=== PATIENT | female | born 1975 | race Caucasian/White ===

== ENCOUNTER → 2017-11-25 15:48 | Outpatient (CLI) | payer MEDICAID, SELFPAY ==
[2017-11-25 18:40] LABS: Absolute Lymphocyte Count 2.11 X10^3/ul (0.83-4.51); Absolute Neutrophil Count 7.6 X10^3/uL (2.0-7.7); Basophil# 0.02 X10^3/uL; Basophil% 0.2 % (0-1); Eosinophil# 0.25 X10^3/uL; Eosinophils% 2.3 % (0-5); Hematocrit 44.2 % (37-47); Hemoglobin 14.3 g/dl (12.0-15.0); Lymphocyte # 2.11 X10^3/ul (4.0); Lymphocyte % 19.8 % (19-41); Mean Corp Hgb Conc 32.4 g/gl (32-36); Mean Corpuscular Hgb 29.6 pg (27.0-32.0); Mean Corpuscular Volume 91.5 fL (81-99); Mean Platelet Vol. 10.6 fl (6.2-12.0); Monocyte# 0.66 X10^3/uL; Monocyte% 6.2 % (0-10); Neutrophil % 71.2 % (47-70); POSITIVE COUNT NO; POSITIVE DIFFERENTIAL NO; POSITIVE MORPHOLOGY NO; Platelet Count 255 K/mm3 (150-450); RBC Distribution Width CV 14.7 % (11.6-14.6); RBC Distribution Width SD 48.3 fl (35.1-43.9); Red Blood Count 4.83 M/mm3 (4.2-5.4); White Blood Count 10.7 K/mm3 (4.4-11.0)
[2017-11-25 18:41] LABS: ALB/GLOB Ratio 0.8 RATIO (0.9-2.4); AST(SGOT) 21 U/L (15-37); Alanine Aminotransfer ALT/SGPT 58 U/L (13-56); Albumin, Serum 3.3 g/dL (3.2-5.0); Alkaline Phosphatase 152 U/L (45-117); Anion Gap 9 (5-15); BUN 9 mg/dL (7-18); BUN/Creat Ratio 15.8 RATIO (10-20); Calcium,Total 8.4 mg/dL (8.5-10.1); Chloride 104 mmol/L (98-107); Creatinine, Serum 0.57 mg/dL (0.55-1.02); EST Glomerular Filtration Rate 123 mL/min (>60); Est Glom Filt Rate - Afr Amer 148 mL/min (>60); Globulin 4.2 g/dL (2.2-4.2); Glucose 165 mg/dL (74-106); Potassium 3.9 mmol/L (3.5-5.1); Protein, Total 7.5 g/dL (6.4-8.2); Sodium Level 138 mmol/L (136-145)
[2017-11-25 18:47] LABS: Erythrocyte Sedimentation Rate 71 mm/hr (0-20); Vitamin D,25 Hydroxy 10.8 ng/mL (29.95-100.01)
== END ==
PROVIDERS: Family Provider Family Medicine; PCP Family Medicine; Visit Provider Family Medicine
DX: E11.9 Type 2 diabetes mellitus without complications (principal); M79.7 Fibromyalgia
CPT/HCPCS: 36415; 80053; 82306; 84443; 85025; 85652

== ENCOUNTER → 2018-01-03 14:45 | Outpatient (CLI) | payer MEDICAID, SELFPAY ==
[2018-01-03 15:59] LABS: Erythrocyte Sedimentation Rate 48 mm/hr (0-20)
[2018-01-03 16:07] LABS: Rheumatoid Factor < 10.0 IU/mL (<15); Uric Acid 3.3 mg/dL (2.6-6.0)
[2018-01-03 16:30] LABS: Microalbumin:Creatinine Ratio 10.3 mg/g CRE (<30 mg/g CRE)
[2018-01-04 08:44] LABS: Vitamin D,25 Hydroxy 26.3 ng/mL (29.95-100.01)
[2018-01-06 12:17] LABS: ANTINUCLEAR ANTIBODIES DIRECT Negative (Negative)
== END ==
PROVIDERS: Family Provider Family Medicine; PCP Family Medicine; Visit Provider Family Medicine
DX: E11.9 Type 2 diabetes mellitus without complications (principal); R70.0 Elevated erythrocyte sedimentation rate; E55.9 Vitamin D deficiency, unspecified
CPT/HCPCS: 36415; 82043; 82306; 82570; 84550; 85652; 86038; 86140; 86431

== ENCOUNTER → 2020-01-16 | Outpatient (CLI) | payer MEDICAID, SELFPAY ==
--- NOTE | 2020-01-16 10:00 | MRI_ITS ---
STUDY: MRI BRAIN WITH AND WITHOUT CONTRAST (ATTENTION INTERNAL AUDITORY CANALS - I.A.C.''s) REASON FOR EXAM: Female, 44 years old. vertigo -- dizziness x3 months, bilat ear pressure, hearing OK TECHNIQUE: Standardized multiplanar fat and water weighted pulse sequences were obtained. IV dotarem 22 ml was administered for the contrast portion of the examination. COMPARISON: None. FINDINGS: Normal bilateral temporal bones. Normal bilateral internal auditory canals. There is no demonstrated intracanalicular or cisternal vestibular schwannoma (acoustic neuroma). There is no enhancement of the bilateral VIIth or VIIIth cranial nerves. Normal bilateral cochlea, vestibules and semicircular canals. Normal size of the ventricles and extra-axial spaces for the patient''s age. Normal white matter tracts of the supratentorial brain. There is no evidence for recent intracranial ischemia or other cause of cytotoxic edema on diffusion weighted imaging (DWI). Normal bilateral basal ganglia. Normal thalami. Normal flow voids within the major intracranial circulation suggesting patency by spin echo criteria. Normal venous enhancement. There is no enhancing intra-axial or extra-axial abnormality. There is no extra-axial fluid accumulation. 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 Normal infundibular stalk, hypothalamus, and optic chiasm. Normal tectal plate and pineal gland. Normal midbrain, pooja and medulla. Normal cerebellum. Normal basal cisterns. No demonstrated orbital abnormality, within the constraints of a routine brain study. Normal visualized paranasal sinuses. Normal calvarium and skull base. Normal visualized soft tissue structures. Normal visualized upper cervical spine. MRI/Brain W/WO Contrast IMPRESSION: Normal unenhanced and enhanced MRI of the bilateral internal auditory canals (I.A.C''s). Electronically Signed: Felix Collins MD at 11:30 EDT Tel , Service support ,
== END | disposition home or self-care (01) ==
PROVIDERS: PCP Family Medicine; Referring Provider Otolaryngology; Visit Provider Otolaryngology
DX: R42 Dizziness and giddiness (principal)
CPT/HCPCS: 70553; A9575

== ENCOUNTER → 2020-02-05 | Outpatient (CLI) | payer MEDICAID, SELFPAY ==
[2016-04-14 06:43] VITALS: BMI 46.7
--- NOTE | 2020-02-05 12:41 | RAD_ITS ---
STUDY: X-RAY CHEST REASON FOR EXAM: Female, 44 years old. Smoker -- dizziness, light-headed lately TECHNIQUE: PA and lateral views of the chest. COMPARISON: None. FINDINGS: The lungs are clear and expanded. Scattered calcified granulomas. There is no demonstrated pleural abnormality. Normal size heart. Normal mediastinum and guille. Normal visualized pulmonary arteries. Normal visualized aortic arch and descending thoracic aorta. There are degenerative changes of the visualized thoracic spine. Normal visualized ribs, clavicles, and shoulders. There is no demonstrated abnormality of the visualized soft tissue structures of the upper abdomen. RAD/Chest PA and Lateral IMPRESSION: No acute abnormality is seen. Electronically Signed: Celso Acosta, at 15:28 EDT , Service support ,
[2020-02-05 15:10] LABS: Hematocrit 44.1 % (37-47); Hemoglobin 14.2 g/dL (12.0-15.0); Mean Corp Hgb Conc 32.2 g/dL (32-36); Mean Corpuscular Hgb 30.9 pg (27.0-32.0); Mean Corpuscular Volume 96.1 fL (81-99); Mean Platelet Vol. 9.5 fl (6.2-12.0); Platelet Count 296 K/mm3 (150-450); Red Blood Count 4.59 M/mm3 (4.2-5.4); White Blood Count 11.1 K/mm3 (4.4-11.0)
[2020-02-05 15:16] LABS: Erythrocyte Sedimentation Rate 19 mm/hr (0-20)
[2020-02-05 15:21] LABS: Vitamin D,25 Hydroxy 15.4 ng/mL
[2020-02-05 15:34] LABS: ALB/GLOB Ratio 0.8 RATIO (0.9-2.4); AST(SGOT) 11 U/L (15-37); Alanine Aminotransfer ALT/SGPT 24 U/L (13-56); Albumin, Serum 3.4 g/dL (3.2-5.0); Alkaline Phosphatase 82 U/L (45-117); Anion Gap 8 (5-15); BUN 7 mg/dL (7-18); BUN/Creat Ratio 10.3 RATIO (10-20); Calcium,Total 8.8 mg/dL (8.5-10.1); Chloride 102 mmol/L (98-107); Cholesterol 276 mg/dL (200); Creatinine, Serum 0.68 mg/dL (0.55-1.02); EST Glomerular Filtration Rate 100 mL/min (>60); Est Glom Filt Rate - Afr Amer 120 mL/min (>60); Globulin 4.3 g/dL (2.2-4.2); Glucose 145 mg/dL (74-106); High Density Lipoprotein 42 mg/dL; Magnesium 2.1 mg/dL (1.6-2.6); Potassium 3.8 mmol/L (3.5-5.1); Protein, Total 7.7 g/dL (6.4-8.2); Sodium Level 136 mmol/L (136-145); Thyroid Stim Hormone (TSH) 2.06 uIU/mL (0.358-3.74); Triglycerides 193 mg/dL; Very Low Density Lipoprotein 39 mg/dL (5-40)
== END | disposition home or self-care (01) ==
LOC: MTLAB 12:38
PROVIDERS: PCP Family Medicine; Referring Provider Family Medicine; Visit Provider Family Medicine
DX: E11.9 Type 2 diabetes mellitus without complications (principal); K58.9 Irritable bowel syndrome, unspecified; J44.9 Chronic obstructive pulmonary disease, unspecified
CPT/HCPCS: 36415; 71046; 80053; 80061; 82306; 83735; 84443; 85027; 85652

== ENCOUNTER 2020-05-19 10:00 | Inpatient (IN) | payer MEDICAID, SELFPAY ==
[2020-05-19] VITALS (37 sets, daily range): BP systolic 123–210; BP diastolic 58–137; PULSE 55–92; RESP 14–25; TEMP 36.6–36.7; O2SAT 97–100; BMI 39.4; BMI 39.1
--- NOTE | 2020-05-19 10:20 | EKG12_ITS ---
Test Reason : CP Blood Pressure : / mmHG Vent. Rate : 080 BPM Atrial Rate : 080 BPM P-R Int : 126 ms QRS Dur : 096 ms QT Int : 452 ms P-R-T Axes : 067 089 017 degrees QTc Int : 521 ms Sinus rhythm with Premature ventricular complexes or Fusion complexes ST & T wave abnormality, consider inferior ischemia Prolonged QT Abnormal ECG No previous ECGs available Confirmed by GOLDIE LYNCH, HUMBERTO ([id number]), slot editor RAMONITA GRAMAJO ([id number]) on 05/21/2020 11:37:58 AM Referred By: TERELL Confirmed By:HUMBERTO AMEZCUA MD
--- NOTE | 2020-05-19 10:21 | ED.DCSUM_ITS ---
History of Present Illness Chief Complaint: Chest Pain Informant: Patient Onset: - - overnight; between 6-10 hrs Activity at onset: Sleep Timing: Continuous Quality: Heaviness, Pressure Location: Substernal - with radiation into neck/ears Current Severity: Severe Maximum Severity: Severe Worsened By: - - sleeping; tried to go back to sleep and woke up w/ pain worse Relieved By: Nothing - tried tylenol and ibuprofen Associated Symptoms: Nausea, Vomiting, Diaphoresis, Dyspnea. Negative for: Cough, Fever, Lightheadedness, Palpitations Prior Similar Symptoms: No Recent Illness/Hospitalization: No CVD Risk Factors: Diabetes, Hypercholesterolemia, Smoking PE Risk Factors: Negative for: Recent Travel/Surgery, Recenet Immobilization, Prior DVT or PE, Cancer, OCP + Smoking + >/=35 - Past Medical History (1) Type 2 diabetes mellitus Status: Chronic (2) COPD (chronic obstructive pulmonary disease) Status: Chronic (3) Hyperlipidemia Status: Chronic Past Medical History - Allergies and Home Meds Allergies/Adverse Reactions: Allergies latex Allergy (Verified 04/08/16 13:02) Rash Primary Care Physician: Jonn Romero MD [Primary Care Provider] - Smoking Status: Current every day smoker Review of Systems General: Reports: Malaise, Sweats. Denies: Chills, Fever Eyes: Denies: Visual changes - bilaterally, Diplopia ENT: Denies: Bilateral ear pain, Rhinorrhea, Sore throat Cardiovascular: Reports: Chest pain. Denies: Palpitations Respiratory: Reports: Dyspnea. Denies: Cough, Dyspnea on exertion Gastrointestinal: Reports: Nausea, Vomiting. Denies: Abdominal pain, Diarrhea, Melena, Hematochezia Genitourinary: Denies: Dysuria, Hematuria, Frequency Musculoskeletal: Reports: Neck pain. Denies: Back pain, Swelling, Extremity Pain Skin: Denies: Rash, Wounds Neurological: Denies: Headache, Weakness, Numbness Physical Exam Vital Signs/Narrative: Vital Signs Temp Pulse Resp BP Pulse Ox 05/19/20 10:01 97.9 F 58 L 20 H 171/86 H 98 Inital Vital Signs reviewed: Yes General: Well nourished, Well developed, Obese, No Acute Distress - but crying in pain Head: Normocephalic, Atraumatic Eyes: Perrl, EOMI ENT: Moist mucous membranes, No rhinorrhea Neck: Supple, Nontender Cardiovascular: Regular rate, Regular rhythm, No murmurs, - - Equal bilateral 2+/4 radial pulses. Negative for: Tachycardia Respiratory: No distress, CTA bilaterally, Chest nontender Abdomen: Soft, Nontender, Nondistended, Normal bowel sounds Back: Nontender, Normal Inspection Extremities: Nontender, No edema. Negative for: Calf Tenderness Skin: Normal color, No rash, No Trauma Neurological: Alert, Oriented x3, Cranial nerves II-XII grossly intact, Normal Strength, Normal Sensation Psychological: Normal Mood, Tearful Diagnostic/Tx/Re-eval Impressions Chest X-Ray 05/19/20 10:55 IMPRESSION: No acute abnormality is seen. Electronically Signed: Celso Acosta, at 11:07 EDT , Service support , 05/19/20 10:55 Chest 1 View (Portable) [RAD] Stat Laboratory Results 05/19/20 05/19/20 05/19/20 10:10 10:10 10:10 WBC 12.4 H RBC 5.19 Hgb 16.5 H Hct 48.7 H MCV 93.8 MCH 31.8 MCHC 33.9 RDW Std Deviation 45.5 H RDW Coeff of Kenn 13.2 Plt Count 350 MPV 9.6 Immature Gran % (Auto) 0.300 Neut % (Auto) 65.6 Lymph % (Auto) 26.5 [place] % (Auto) 5.8 Eos % (Auto) 1.3 Baso % (Auto) 0.5 Absolute Neuts (auto) 8.2 H Absolute Lymphs (auto) 3.30 Nucleated RBC % 0 APTT 27.3 Sodium 135 L Potassium 2.9 L Chloride 95 L Carbon Dioxide 33.0 H Anion Gap 7 BUN 16 Creatinine 0.92 Estim Creat Clear Calc 55.47 Est GFR (MDRD) Af Amer 85 Est GFR (MDRD) Non-Af 70 BUN/Creatinine Ratio 17.4 Glucose 169 H Calcium 9.7 Troponin I < 0.015 - Rhythm Strip Rhythm Strip: Sinus Rhythm Rate: 60 Ectopy: None - EKG Initial EKG Interpretation: Sinus Rhythm, S-T Depression - inf 1-2mm, no recip ST elevation Prior: No Prior Treatment: Aspirin, NTG SL Repeat Eval: No changes; subsequently given morphine and GI cocktail, with mild improvement, appears more comfortable PETER Risk: >/= 3RF, Severe Angina </=24 hours, ST Deviation >/= 0.5mm Score: 3 - Medical Decision Making Patient has above average risk for a 44-year-old, and continues to smoke despite having COPD. Her EKG is abnormal showing possible subendocardial ischemia inferiorly, however there is no old EKG available for evaluation to see if this is pre-existing. For these reasons, I think she should be admitted to have further evaluation although her enzymes are negative which certainly is reass uring. Patient is comfortable with this plan. ED Disposition - Plan for ED Patient: Disposition: Acute Care Hospital [facility] Diagnosis: Chest pain, unspecified, Hypokalemia Referrals: Jonn Romero MD [Primary Care Provider] -
[2020-05-19] MEDS: Aspirin 81 MG TAB.CHEW 324 MG PO (10:30)
[2020-05-19] MEDS: Ondansetron 4 MG/2 ML Vial IV ×2 (10:30→19:45)
[2020-05-19] MEDS: Nitroglycerin SL (ED/IMG/CATH) 0.4 MG TABLET SUBLINGUAL ×3 (10:34→10:45)
[2020-05-19] MEDS: 0.9% Normal Saline 1,000 ML 150 ML IV (10:35)
[2020-05-19 10:39] LABS: Absolute Neutrophil Count 8.2 X10^3/uL (2.0-7.7); Basophil# 0.06 X10^3/uL; Basophil% 0.5 % (0-1); Eosinophil# 0.16 X10^3/uL; Eosinophils% 1.3 % (0-5); Hematocrit 48.7 % (37-47); Hemoglobin 16.5 g/dL (12.0-15.0); Lymphocyte % 26.5 % (19-41); Mean Corp Hgb Conc 33.9 g/dL (32-36); Mean Corpuscular Hgb 31.8 pg (27.0-32.0); Mean Corpuscular Volume 93.8 fL (81-99); Mean Platelet Vol. 9.6 fl (6.2-12.0); Monocyte# 0.72 X10^3/uL; Monocyte% 5.8 % (0-10); NRBC Flagged by Analyzer 0 % (0-5); Neutrophil # 8.16 X10^3/uL (2.7-7.7); Neutrophil % 65.6 % (47-70); Platelet Count 350 K/mm3 (150-450); RBC Distribution Width CV 13.2 % (11.6-14.6); RBC Distribution Width SD 45.5 fl (35.1-43.9); Red Blood Count 5.19 M/mm3 (4.2-5.4); White Blood Count 12.4 K/mm3 (4.4-11.0)
[2020-05-19 10:42] LABS: Partial Thromboplast Time 27.3 Seconds (24.1-36.2)
[2020-05-19 10:47] LABS: Anion Gap 7 (5-15); BUN 16 mg/dL (7-18); BUN/Creat Ratio 17.4 RATIO (10-20); Calcium,Total 9.7 mg/dL (8.5-10.1); Chloride 95 mmol/L (98-107); Creatinine, Serum 0.92 mg/dL (0.55-1.02); EST Glomerular Filtration Rate 70 mL/min (>60); Est Glom Filt Rate - Afr Amer 85 mL/min (>60); Estimated Creatinine Clearance 55.47 ml/min; Glucose 169 mg/dL (74-106); Potassium 2.9 mmol/L (3.5-5.1); Sodium Level 135 mmol/L (136-145)
--- NOTE | 2020-05-19 10:55 | RAD_ITS ---
STUDY: X-RAY CHEST REASON FOR EXAM: Female, 44 years old. Chest pain TECHNIQUE: Single AP portable view of the chest. COMPARISON: Comparison is made with prior study dated 02/05/2020. FINDINGS: EKG electrodes are seen. The lungs are clear and expanded. There is no demonstrated pleural abnormality. Normal size heart. Normal mediastinum and guille. Normal visualized pulmonary arteries. Normal visualized aortic arch and descending thoracic aorta. There are diffuse degenerative changes of the visualized thoracic spine. Tiny calcification is seen overlying the greater tuberosity of the right humerus suggestive of possible calcific tendinitis. There is no demonstrated abnormality of the visualized soft tissue structures of the upper abdomen. RAD/Chest 1 View (Portable) IMPRESSION: No acute abnormality is seen. Electronically Signed: Celso Acosta, at 11:07 EDT , Service support ,
[2020-05-19] MEDS: Morphine 4 MG/ML Syringe IV (11:14)
[2020-05-19] MEDS: Mag Hydrox/Al Hydrox/Simeth 30 ML UDC PO (11:14)
--- NOTE | 2020-05-19 11:28 | HP.PCM_ITS ---
Problem List (1) Type 2 diabetes mellitus Status: Chronic Qualifiers: Diabetes mellitus intermediate card tender insulin use: without intermediate card tender use Diabetes mellitus complication status: with other specified complication Qualified Code(s): E11.69 - Type 2 diabetes mellitus with other specified complication (2) COPD (chronic obstructive pulmonary disease) Status: Chronic Qualifiers: COPD type: unspecified COPD Qualified Code(s): J44.9 - Chronic obstructive pulmonary disease, unspecified (3) Chest pain, unspecified Status: Acute Qualifiers: Chest pain type: unspecified Qualified Code(s): R07.9 - Chest pain, unspecified (4) Hypokalemia Status: Acute History of Present Illness Date of Admission: 05/19/20 Chief Complaint: Chest pain -occurred on the day of admission. The patient is a 44 year old F with past medical history of hypertension, type II DM, fibromyalgia who comes in with complaints of chest pain. Patient woke up on the day of admission around 3 AM with complaints of substernal chest pain that feels pressure-like, radiates to both jaws and her back and down her left arm. It was accompanied by nausea and diaphoresis. This persisted despite she taking Tylenol and ibuprofen. Chest pain is worse when she lies back. She has some minimal relieved when she sits up. She denied any fever or chills or any recent illness. Chest pain is no worse when she moves her torso. She denied any diarrhea. She is constipated. She she however over the last few days has been vomiting, nothing comes out, but she has severe nausea and vomiting several times a day. Vitals on admission showed temperature of 97.9F, heart rate 58, blood pressure 171/86, respiratory was 20, SPO2 98% on room air. Her WBC count was 12.4, hemoglobin 16.5, platelet count 350, sodium 135, potassium 2.9, chloride 95, bicarbonate 33, BUN 16, creatinine 0.92, glucose 169, magnesium was 2.6, troponins was negative, LFTs unremarkable. Chest x-ray was unremarkable. Past Medical History Past Medical History (Chronic Problems): Chronic Problems Type 2 diabetes mellitus (Chronic) COPD (chronic obstructive pulmonary disease) (Chronic) Hyperlipidemia (Chronic) Allergies latex Allergy (Verified 04/08/16 13:02) Rash Home Medications: Ambulatory Orders Medication Instructions Recorded Atorvastatin Calcium [Lipitor] 40 mg PO QHS 02/13/16 Albuterol Sulfate [Albuterol 2.5 mcg INHALATION 4X/DAY PRN PRN 05/19/20 Sulfate HFA] Escitalopram Oxalate 10 mg PO DAILY 05/19/20 Gabapentin [Neurontin] 400 mg PO TID 05/19/20 Hydrochlorothiazide 12.5 mg PO DAILY 05/19/20 Linagliptin [Tradjenta] 5 mg PO DAILY 05/19/20 Tiotropium [place] [Spiriva] 2.5 mcg IH DAILY 05/19/20 Surgical History: - - Status post carpal tunnel surgery, skin lesion removal Psychiatric History: Depression [employer] History: No pertinent [employer]IVER history Lives: With Family - lives with sister Smoking Status: Heavy Smoker (>10/day) Tobacco Use: Cigars Alcohol: None Drugs: None - *Family History Maternal History Items: COPD, Heart Disease - [place] in 50s, Hypertension Paternal History Items: Heart Disease, Hypertension, Stroke Review of Systems Constitutional: Reports: Anorexia, Fatigue. Denies: Chills, Fever, Night Sweats, Malaise, Weakness, Weight Change Eyes: Denies: Blurred vision, Cataracts, Conjunctivae Inflammation, Pain, Redness, Vision Change HEENT: Denies: Difficulty Hearing, Difficulty Swallowing, Head Aches, Hearing Changes, Sinus Congestion, Sinus Drainage Cardiovascular: Denies: Chest Pain, Claudication, Orthopnea, Palpitations, Paroxysmal Noc. Dyspnea Respiratory: Denies: Cough, Shortness of breath at rest, Shortness of breath upon exertion, Sputum production Gastrointestinal: Reports: Nausea, Vomiting - nothing much comes out. Denies: Abdominal Pain, Hematemesis, Hematochezia Genitourinary: Denies: Dysuria, Incontinence Gynecological: Denies: Breast symptoms, Excessively long or heavy periods, Vaginal discharge, Vaginal itching Musculoskeletal: Denies: Joint Pain, Joint stiffness, Joint swelling, Joint Tenderness Skin: Denies: Pruritis, Rash, Wounds Neurological: Denies: Difficulty swallowing, Focal weakness, Numbness, Tingling Psychiatric: Denies: Anxiety, Depression, Homicidal Ideations, Suicidal Ideations Hematologic/ Lymphatic: Denies: Easy Bruising, Easy Bleeding VTE Information - Inpt Only VTE Present on Admission: No VTE Pharm Prophylaxis ordered?: Yes Patient Problems: Active and Suspected Problems Chest pain, unspecified (Acute) Hypokalemia (Acute) - Physical Exam Vitals/I&O's: Vital Signs Temp Pulse Resp BP Pulse Ox 97.9 F 70 19 H 159/108 H 100 05/19/20 10:24 05/19/20 10:45 05/19/20 10:24 05/19/20 10:45 05/19/20 10:24 Oxygen Flow Rate (L/min) 2 Oxygen Delivery Method Nasal Cannula Weight: 91.5 kg Body Mass Index (BMI) 39.4 Finger Stick Blood Glucose 132 General: Alert, Oriented x3, Cooperative, - - appears uncomfortable, having chest pain HEENT: Atraumatic, PERRLA, EOMI, Normocephalic Oral: Moist Mucosa Neck: Supple Lungs: Clear to auscultation, Normal air movement Cardiovascular: Regular rate, Regular Rhythm, Normal S1, Normal S2, No murmurs Abdomen: Bowel Sounds Present, Soft, Non Tender, Non-Distended, No Hepato- splenomegaly Extremities: No edema Skin: No rashes Musculoskeletal: No Tenderness to Palpation of Joints or Extremities Lymphatic: No Cervical, Supraclavicular, or Inguinal Adenopathy Neurological: Cranial nerves II-XII grossly intact, Neuro grossly intact Psych/Mental Status: Normal Affect, Appropriate Laboratory Results 05/19/20 10:10: WBC 12.4 H, RBC 5.19, Hgb 16.5 H, Hct 48.7 H, MCV 93.8, MCH 31.8, MCHC 33.9, RDW Std Deviation 45.5 H, RDW Coeff of Kenn 13.2, Plt Count 350, MPV 9.6, Immature Gran % (Auto) 0.300, Neut % (Auto) 65.6, Lymph % (Auto) 26.5, [place] % (Auto) 5.8, Eos % (Auto) 1.3, Baso % (Auto) 0.5, Absolute Neuts (auto) 8.2 H, Absolute Lymphs (auto) 3.30, Nucleated RBC % 0 05/19/20 10:10: Sodium 135 L, Potassium 2.9 L, Chloride 95 L, Carbon Dioxide 33.0 H, Anion Gap 7, BUN 16, Creatinine 0.92, Estim Creat Clear Calc 55.47, Est GFR (MDRD) Af Amer 85, Est GFR (MDRD) Non-Af 70, BUN/Creatinine Ratio 17.4, Glucose 169 H, Calcium 9.7, Troponin I < 0.015 05/19/20 10:10: APTT 27.3 Current Medications Sodium Chloride () 1,000 mls @ 150 mls/hr IV .[id number] [facility] Last Admin: 05/19/20 10:35 Dose: 150 mls/hr Documented by: Potassium Chloride () 10 meq in 100 mls @ 100 mls/hr IV BOLUS Q1H [facility] Stop: 05/19/20 11:59 Assessment/Plan All Active Problems Chest pain, unspecified (Acute) Hypokalemia (Acute) 1. Chest pain, unclear etiology, concerning for possible ACS versus acute pericarditis Patient with multiple risk factors Initial EKG showed ST segment depression in II, III,AVF. No previous EKG to compare Admit to PCU, monitor on telemetry, trend troponins Continue on aspirin, 2D echo stat, nitro as needed, morphine as needed Will consider cardiology consult if troponins are elevated Pantoprazole IV twice daily 2. Accelerated hypertension/hypertensive emergency, Continue on hydrochlorothiazide, labetalol as needed will continue to monitor 3. Type II DM, on Tradjenta Continue with blood glucose checks and insulin sliding scale 4. Obesity, BMI 39.1, lifestyle modification advised 5. Depression, continue on Lexapro 6. Nicotine dependence, advised to quit, will put on replacement 7. DVT prophylaxis with heparin subcu Inpatient E&M: [id number] Init Hosp L3
[2020-05-19] MEDS: Potassium Chloride 10mEq/100mL 10 MEQ/100 ML IV.SOLN. 100 MEQ IV BOLUS ×5 (11:39→21:17)
[2020-05-19] MEDS: Morphine 2 MG/ML Syringe IV ×3 (12:19→19:38)
[2020-05-19 12:22] LABS: Magnesium 2.6 mg/dL (1.6-2.6)
--- NOTE | 2020-05-19 12:27 | EKG12_ITS ---
Test Reason : CP Blood Pressure : / mmHG Vent. Rate : 081 BPM Atrial Rate : 081 BPM P-R Int : 142 ms QRS Dur : 086 ms QT Int : 436 ms P-R-T Axes : 066 087 017 degrees QTc Int : 506 ms Normal sinus rhythm Septal infarct , age undetermined T wave abnormality, consider inferior ischemia Prolonged QT Abnormal ECG Confirmed by MAX LYNCH, VIKY ([id number]), graphic editor RAMONITA GRAMAJO ([id number]) on 05/21/2020 11:02:46 AM Referred By: JENA Confirmed By:VIKY SANTANA MD
[2020-05-19 12:31] LABS: AST(SGOT) 13 U/L (15-37); Alanine Aminotransfer ALT/SGPT 25 U/L (13-56); Albumin, Serum 4.2 g/dL (3.2-5.0); Alkaline Phosphatase 92 U/L (45-117); Bilirubin, Direct 0.13 mg/dL (0.00-0.30); Globulin 4.4 g/dL (2.2-4.2); Protein, Total 8.6 g/dL (6.4-8.2)
--- NOTE | 2020-05-19 12:32 | ECHOCS_ITS ---
Reason For Study: CHEST PAIN Procedure This was a 2D Doppler, Color Flow transthoracic echocardiogram. The study was technically difficult. Contrast injection was performed. Exam performed portable in patient room. Left Ventricle Normal LV size. The estimated ejection fraction is 35 %. Moderately severe segmental systolic dysfunction (see wall motion). Stage 1 diastolic dysfunction. [place] : Severely Hypokinetic. Mid- anteroseptal : Hypokinetic. Mid-Anterior : Severely Hypokinetic. The rest of the wall segments are normal. Right Ventricle Normal RV size. Normal systolic function. [place] Normal left atrium. Normal right atrium. Mitral Valve Normal mitral valve. Trivial eccentric mitral valve insufficiency. Tricuspid Valve Normal tricuspid valve. Aortic Valve Normal aortic valve. Pulmonic Valve Normal pulmonic valve. Great Vessels Normal aortic root. The pulmonary artery is normal size. Normal inferior vena cava. Pericardium/Pleural No pericardial effusion. Medication Diluted definity 4.0ml given slow IV push to enhance endocardial definition. MMode/2D Measurements & Calculations RVDd: 3.3 cm Ao root diam: 3.7 cm LAV(MOD-bp): 40.7 ml LAV(MOD-bp) Indexed: 21.8 ml/m2 LAV(MOD-sp2): 42.0 ml LAV(MOD-sp4): 39.4 ml LA dimension(2D): 3.6 cm LA A4 area: 14.9 cm2 RA A4 area: 8.9 cm2 Time Measurements MV dec time: 0.33 sec Doppler Measurements & Calculations MV E max chuy: 67.3 cm/sec Lat Peak E' Chuy: 4.3 cm/sec Med Peak E' Chuy: 4.6 cm/sec MV A max chuy: 111.8 cm/sec E/E' lat: 15.8 E/E' med: 14.5 MV E/A: 0.60 Ao V2 max: 112.3 cm/sec LV V1 max: 79.5 cm/sec PA V2 max: 86.5 cm/sec Ao max P.0 mmHg LV V1 max P.5 mmHg Interpretation Summary Normal LV size. The estimated ejection fraction is 35 %. Moderately severe segmental systolic dysfunction (see wall motion). [place] : Severely Hypokinetic. Mid-anteroseptal : Hypokinetic Mid-Anterior : Severely Hypokinetic. Stage 1 diastolic dysfunction. Contrast injection was performed. Ordering Physician: Yuni Davis Referring Physician: ADAM MACIEL Performed By: Brenda Ann, KAREN, RVT
[2020-05-19] MEDS: Nitroglycerin (INPATIENT USE) 0.4 MG TAB.SUBL SUBLINGUAL ×4 (12:43→16:24)
[2020-05-19 16:14] LABS: Anion Gap 8 (5-15); BUN 16 mg/dL (7-18); BUN/Creat Ratio 19.2 RATIO (10-20); Calcium,Total 9.1 mg/dL (8.5-10.1); Chloride 99 mmol/L (98-107); Creatinine, Serum 0.83 mg/dL (0.55-1.02); EST Glomerular Filtration Rate 78 mL/min (>60); Est Glom Filt Rate - Afr Amer 95 mL/min (>60); Estimated Creatinine Clearance 61.48 ml/min; Glucose 185 mg/dL (74-106); Potassium 2.8 mmol/L (3.5-5.1); Sodium Level 136 mmol/L (136-145)
--- NOTE | 2020-05-19 16:17 | EKG12_ITS ---
Test Reason : CP Blood Pressure : / mmHG Vent. Rate : 092 BPM Atrial Rate : 092 BPM P-R Int : 136 ms QRS Dur : 080 ms QT Int : 422 ms P-R-T Axes : 068 103 188 degrees QTc Int : 521 ms Normal sinus rhythm Septal infarct , age undetermined T wave abnormality, consider inferior ischemia T wave abnormality, consider anterolateral ischemia Prolonged QT Abnormal ECG Confirmed by MAX LYNCH, VIKY ([id number]), news editor RAMONITA GRAMAJO ([id number]) on 05/22/2020 1:14:31 PM Referred By: TERELL Confirmed By:VIKY SANTANA MD
--- NOTE | 2020-05-19 16:24 | EKG12_ITS ---
Test Reason : CP Blood Pressure : / mmHG Vent. Rate : 088 BPM Atrial Rate : 088 BPM P-R Int : 132 ms QRS Dur : 088 ms QT Int : 392 ms P-R-T Axes : 056 104 058 degrees QTc Int : 474 ms Normal sinus rhythm Septal infarct , age undetermined Abnormal ECG Confirmed by MAX LYNCH, VIKY ([id number]), map editor RAMONITA GRAMAJO ([id number]) on 05/22/2020 1:16:19 PM Referred By: GOLDIE Confirmed By:VIKY SANTANA MD
[2020-05-19] MEDS: Nitroglycerin Oint 1 INCH PACKET TRANSDERM. (16:30)
--- NOTE | 2020-05-19 16:30 | NURSING ---
Dr. Wood at bedside to see patient. 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
[2020-05-19] MEDS: 0.9% Saline Lock 10 ML Syringe IV (16:51)
--- NOTE | 2020-05-19 16:54 | CON.PCM_ITS ---
Reason for Consult Date of Consultation: 05/19/20 Reason for Consultation: Chest discomfort History of Present Illness: The patient is a 44 year old F with a previous history of hypertension, type 2 diabetes mellitus, fibromyalgia who presented to the emergency room with chest discomfort saying that it woke her up from bed around 3 AM. She describes this as a pressure-like sensation radiating to both jaws and her back and down her left arm. It was accompanied by nausea and diaphoresis. She did take some Tylenol and ibuprofen but the chest pain persisted. She was seen in the emergency room an EKG was done which did not demonstrate any obvious acute changes. She has had significant stress over the last few days related to her significant other. She was admitted to the telemetry care unit and continued to have chest discomfort. She did demonstrate elevated blood pressure as well as hypokalemia. I was called to see the patient after the chest discomfort persisted and an echocardiogram was performed which demonstrated evidence of anterior hypokinesis and her troponin came back as abnormal. At this particular time she continues to have chest discomfort which is unrelenting. Past Medical History Allergies/Adverse Reactions: Allergies latex Allergy (Verified 04/08/16 13:02) Rash Home Medications: Ambulatory Orders Medication Instructions Recorded Atorvastatin Calcium [Lipitor] 40 mg PO QHS 02/13/16 Albuterol Sulfate [Albuterol 2.5 mcg INHALATION 4X/DAY PRN PRN 05/19/20 Sulfate HFA] Escitalopram Oxalate 10 mg PO DAILY 05/19/20 Gabapentin [Neurontin] 400 mg PO TID 05/19/20 Hydrochlorothiazide 12.5 mg PO DAILY 05/19/20 Linagliptin [Tradjenta] 5 mg PO DAILY 05/19/20 Tiotropium [place] [Spiriva] 2.5 mcg IH DAILY 05/19/20 Past Medical History (Chronic Problems): Chronic Problems Type 2 diabetes mellitus (Chronic) COPD (chronic obstructive pulmonary disease) (Chronic) Hyperlipidemia (Chronic) Surgical History: - - Status post carpal tunnel surgery, skin lesion removal Psychiatric History: Depression 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 Denies: Shortness of Breath, Orthopnea, PND, Peripheral Edema, Palpitations, Lightheadedness, Dizziness, Near Syncope, Syncope Respiratory: Denies: Cough, Sputum Production, Hemoptysis Gastrointestinal: Denies: Hematemesis, Hematochezia, Melena Genitourinary: Denies: Dysuria, Hematuria Muscoloskeletal: Denies: Myalgias Skin: Denies: Rash Neurological: Denies: Dizziness Psychiatric: Denies: Anxiety Hematologic/ Lymphatic: Denies: Lymph Node Enlargement Subjectve: Pleasant lady in no distress at this particular time Objective: Vital Signs Temp Pulse Resp BP Pulse Ox 97.9 F 84 18 167/109 H 97 05/19/20 11:51 05/19/20 16:35 05/19/20 11:51 05/19/20 16:35 05/19/20 12:26 Oxygen Flow Rate (L/min) 2 Oxygen Delivery Method Room Air Weight: 200 lb 6.403 oz Body Mass Index (BMI) 39.1 Finger Stick Blood Glucose 132 Intake and Output for Last 24 Hours 05/17/20 05/18/20 05/19/20 23:59 23:59 23:59 Intake Total 455 / 455 Balance 455 / 455 General: Awake, Alert, Oriented x 3 HEENT: PERRL, EOMI, Sclera Non Icteric Neck: Supple, Good ROM, No Lymph Node Enlargement Lungs: Clear to auscultation Cardiovascular: Regular Rhythm, Normal S1, Normal S2, No Murmurs, No Rubs, No Gallops Vascular: No Carotid Bruits, Normal Femoral Pulses, Normal Radial Pulses, Normal Dorsalis Pedal Pulse, Normal Posterior Tibial Pulses Abdomen: Bowel Sounds Present, Soft, Non Tender, No HSM, No Organomegaly Extremities: No Cyanosis, No Clubbing, No edema Musculoskeletal: No Erythema Skin: No Rashes Lymphatic: No Lymph Node Enlargement Neurological: No Focal Motor or Sensory Deficit Psych/Mental Status: Appropriate 05/19/20 10:10: WBC 12.4 H, RBC 5.19, Hgb 16.5 H, Hct 48.7 H, MCV 93.8, MCH 31.8, MCHC 33.9, Plt Count 350, MPV 9.6, Immature Gran % (Auto) 0.300, Neut % (Auto) 65.6, Lymph % (Auto) 26.5, [place] % (Auto) 5.8, Eos % (Auto) 1.3, Baso % (Auto) 0.5, Absolute Neuts (auto) 8.2 H, Nucleated RBC % 0 05/19/20 10:10: Sodium 135 L, Potassium 2.9 L, Chloride 95 L, Carbon Dioxide 33.0 H, Anion Gap 7, BUN 16, Creatinine 0.92, Est GFR (MDRD) Af Amer 85, Est GFR (MDRD) Non-Af 70, BUN/Creatinine Ratio 17.4, Glucose 169 H, Calcium 9.7, Tro ponin I < 0.015 05/19/20 10:10: APTT 27.3 05/19/20 10:10: Total Bilirubin 0.40, Direct Bilirubin 0.13 05/19/20 10:10: Magnesium 2.6 05/19/20 14:37: Sodium 136, Potassium 2.8 L, Chloride 99, Carbon Dioxide 29.0, Anion Gap 8, BUN 16, Creatinine 0.83, Est GFR (MDRD) Af Amer 95, Est GFR (MDRD) Non-Af 78, BUN/Creatinine Ratio 19.2, Glucose 185 H, Calcium 9.1, Troponin I 2.040 H* Rhythm: EKG: Normal sinus rhythm with downsloping ST depression noted in lead III and aVF and mildly elevated ST elevation in aVL. ECHO: Reduced left ventricular systolic function with severely hypokinetic mid anterior wall apex and inferoapical wall estimated ejection fraction 35 to 40% Assessment/Plan 1. Acute coronary syndrome * Patient presents with chest discomfort and subtle EKG changes with echocardiographic abnormalities noted and elevated troponin. It would be prudent for us to exclude an acute coronary syndrome. Certainly Takotsubo cardiomyopathy could also present this way. Due to her unrelenting chest discomfort I would recommend that we take her to the cardiac catheterization lab and assess her coronary anatomy. The risk benefits alternatives of been explained to her she understands and agrees to proceed. * 2. Severe uncontrolled hypertension * Her blood pressure appears to be uncontrolled at this particular time. I would recommend that we start her on intravenous nitroglycerin due to his chest discomfort and will titrate her medications afterwards. Depending on the findings on FLAQUITA inhibitor and a beta-ramy will be started. * 3. Risk factor modification * Would recommend aggressive risk factor modification. * Electrolyte abnormalities should also be corrected. * * Thank you for allowing me to participate in the care of your patient. Please don't hesitate to call if any issues arise.
[2020-05-19 16:57] LABS: Prothrombin Time (Protime)PT. 12.5 SECONDS (11.7-14.9)
[2020-05-19] MEDS: Nitroglycerin Infusion 250 ML 3 MG CONT INF (17:05)
--- NOTE | 2020-05-19 18:22 | CL.D_ITS ---
Patient Name: DAGO RIOS Study Date: 05/19/2020 Performing: Odin Wood MD Ht: 59.84 inches 152 cm : 1975 Wt: 200.62 lbs 91 kg Age: 44 Gender: female BSA: 1.87 PROCEDURE(S) PERFORMED [id number]-[id number]/COR/LV CLINICAL PROFILE AND INDICATIONS Indications: ACS <= 24 hrs Heart Failure: None Stress/Imaging Stress/Image Study Performed: No CONCLUSIONS Diffuse coronary artery disease with mild calcification noted of the left anterior descending artery, nondominant small circumflex artery with mid segment diffuse disease of 70% also involving the first obtuse marginal branch and calcification and mild diffuse disease noted of the right coronary artery . Definite wall motion abnormality involving the anterior wall and apex consistent with Takotsubo ca rdiomyopathy. RECOMMENDATIONS Medical therapy DESCRIPTION OF PROCEDURE The patient arrived to the procedure lab. The risks and benefits of the procedure as well as a full d escription of our services here and current unavailability of surgical backup were fully explained to the patient and/or their significant other prior to the catheterization. The Timeout was completed, verifying the correct patient and procedure. The patient's procedural site was prepped and draped in the usual fashion. Local anesthetic was given subcutaneously to right radial region with Lidocaine 2% . Using a modified Seldinger technique, arterial access was obtained via the right radial artery, a 6 Fr sheath was inserted. Left Coronary Artery selective angiography was performed in multiple views u sing a 5 Fr. 4.0 Sikes catheter. Right Coronary Artery selective angiography was then performed in mu ltiple views using a 5 Fr. 4.0 Sikes catheter. Left Ventriculography was performed in WALLER projection using a 5 Fr. Pigtail catheter. LV to AO pullback pressures were then recorded. CORONARY ANGIOGRAPHY DOMINANCE: Right Dominant LEFT HEART ASSESSMENT Left Ventricular Ejection Fraction: by LV Gram 35 % Consistent with Takotsubo cardiomyopathy. LEFT MAIN: Angiographically normal LEFT ANTERIOR DESCENDING ARTERY: Moderate luminal irregularities up to 50% CIRCUMFLEX ARTERY: MID CIRC: Diffusely diseased up to 70 % OM 1: Proximal - Diffusely diseased up to 70 % RIGHT CORONARY ARTERY: Mild luminal irregularities less than 30% PROX RCA: Mild calcification COMPLICATIONS No Complications PROCEDURE MEDICATIONS Fentanyl 50 mcg IV Versed 1 mg IV Heparin diluted in 23cc Heparinized saline. Patient given 10cc IA of this solution. 05/19/2020 17:53: 18 Nitro glycerin 25mg / 250ml D5W @ 5 mcg/min Arrived to the equipment operator/laborer on the drip and was continued 05/06 17:40:48 Nitro glycerin 25mg / 250ml D5W @ 10 mcg/min (increased rate) 05/19/2020 17:52:39 Nitro glycerin 25mg / 250ml D5W @ 15 mcg/min (increased rate) 05/19/2020 18:05:34 Potassium Chloride 10 mEq in 100cc NS 05/19/2020 17:41:37 Zofran 4 mg IV 05/19/2020 17:41:02 IV Bolus: .9 NaCl 400 ml total 05/19/2020 18:03:32 SUMMARY OF HEMODYNAMIC DATA Time AIR REST ECG 17:39:19 AO 181/122 (150) SA 17:52:10 LV 169/17, 27 18:01:28 LV 167/22, 28 18:01:34 LV 172/28, 34 18:02:22 LV 172/27, 33 18:02:28 LVp 181/21, 34 18:02:35 AOp 175/110 (141) 18:02:40 Signed By Odin Wood MD On 05/19/2020 18:21:49 Signed By Odin Wood MD On 05/19/2020 18:21:21 Odin Wood MD
[2020-05-19] MEDS: 0.9% Normal Saline 1,000 ML 100 ML IV (18:56)
[2020-05-19] MEDS: Ipratropium 0.5 MG/2.5 ML SOLUTION INHALATION (19:25)
[2020-05-19 19:31] LABS: Bedside Glucose 171 mg/dL (70-110)
[2020-05-19] MEDS: Labetalol (Compound) 20 MG/4 ML SYRINGE IV (20:02)
[2020-05-19] MEDS: LORazepam 2 MG/ML Syringe 1 MG IV (20:33)
[2020-05-19] MEDS: Polyethylene Glycol 3350 17 GM PACKET PO (20:33)
[2020-05-19] MEDS: fentaNYL 100 MCG/2 ML Ampul 25 MCG IV (20:33)
[2020-05-19] MEDS: Metoprolol Tartrate 50 MG Tablet PO (21:21)
[2020-05-19] MEDS: Atorvastatin Calcium 40 MG Tablet PO (21:22)
[2020-05-19] MEDS: Gabapentin 400 MG Capsule PO (21:22)
[2020-05-19] MEDS: Insulin Lispro 100 UNIT/ML INSULN.PEN SC (21:28)
[2020-05-19 21:36] LABS: Bedside Glucose 194 mg/dL (70-110)
[2020-05-20] VITALS (39 sets, daily range): BP systolic 99–147; BP diastolic 54–93; PULSE 72–102; RESP 14–30; TEMP 36.2–37.2; O2SAT 91–100
[2020-05-20] MEDS: LORazepam 2 MG/ML Syringe 1 MG IV (03:48)
[2020-05-20] MEDS: Acetaminophen 325 MG Tablet 650 MG PO ×2 (03:48→18:40)
[2020-05-20] MEDS: 0.9% Normal Saline 1,000 ML 100 ML IV (03:51)
[2020-05-20] MEDS: 0.9% Saline Lock 10 ML Syringe IV ×3 (03:53→21:18)
[2020-05-20 06:38] LABS: Absolute Lymphocyte Count 2.36 X10^3/uL (0.83-4.51); Basophil# 0.03 X10^3/uL; Basophil% 0.2 % (0-1); Eosinophil# 0.11 X10^3/uL; Eosinophils% 0.8 % (0-5); Lymphocyte # 2.36 X10^3/ul (4.0); Lymphocyte % 16.2 % (19-41); Mean Corp Hgb Conc 33.3 g/dL (32-36); Mean Corpuscular Hgb 31.3 pg (27.0-32.0); Mean Platelet Vol. 9.3 fl (6.2-12.0); Monocyte# 0.95 X10^3/uL; Monocyte% 6.5 % (0-10); NRBC Flagged by Analyzer 0 % (0-5); Neutrophil # 11.04 X10^3/uL (2.7-7.7); Neutrophil % 75.9 % (47-70); Platelet Count 252 K/mm3 (150-450); RBC Distribution Width CV 13.2 % (11.6-14.6); RBC Distribution Width SD 45.5 fl (35.1-43.9); Red Blood Count 4.15 M/mm3 (4.2-5.4); White Blood Count 14.6 K/mm3 (4.4-11.0)
[2020-05-20] MEDS: Insulin Lispro 100 UNIT/ML INSULN.PEN SC ×4 (06:42→21:17)
[2020-05-20] MEDS: Gabapentin 400 MG Capsule PO ×3 (06:42→21:17)
[2020-05-20] MEDS: Enoxaparin 40 MG/0.4 ML Syringe SC (06:42)
[2020-05-20 06:50] LABS: Bedside Glucose 171 mg/dL (70-110)
[2020-05-20 07:05] LABS: ALB/GLOB Ratio 0.9 RATIO (0.9-2.4); AST(SGOT) 137 U/L (15-37); Alanine Aminotransfer ALT/SGPT 30 U/L (13-56); Albumin, Serum 3.1 g/dL (3.2-5.0); Alkaline Phosphatase 71 U/L (45-117); Anion Gap 7 (5-15); BUN 9 mg/dL (7-18); BUN/Creat Ratio 15.7 RATIO (10-20); Calcium,Total 7.9 mg/dL (8.5-10.1); Chloride 102 mmol/L (98-107); Creatinine, Serum 0.57 mg/dL (0.55-1.02); EST Glomerular Filtration Rate 121 mL/min (>60); Est Glom Filt Rate - Afr Amer 146 mL/min (>60); Estimated Creatinine Clearance 89.53 ml/min; Globulin 3.4 g/dL (2.2-4.2); Glucose 169 mg/dL (74-106); Potassium 3.3 mmol/L (3.5-5.1); Protein, Total 6.5 g/dL (6.4-8.2); Sodium Level 137 mmol/L (136-145)
[2020-05-20] MEDS: Ipratropium 0.5 MG/2.5 ML SOLUTION INHALATION ×3 (07:29→19:11)
--- NOTE | 2020-05-20 07:31 | PN.CARD_ITS ---
Subjectve: Patient seen and evaluated. Appears to have had an okay night after she was given pain medication as well as a sedative. Objective: Vital Signs Temp Pulse Resp BP Pulse Ox 98.1 F 86 27 H 132/79 H 91 05/19/20 23:00 05/20/20 06:00 05/20/20 06:00 05/20/20 06:00 05/20/20 06:00 Oxygen Flow Rate (L/min) 2 Oxygen Delivery Method Room Air Weight: 205 lb 11.06 oz Body Mass Index (BMI) 39.1 Finger Stick Blood Glucose 132 Intake and Output for Last 24 Hours 05/18/20 05/19/20 05/20/20 23:59 23:59 23:59 Intake Total 1568.14 / 1726.34 1121.87 / 1121.87 Balance 1568.14 / 1726.34 1121.87 / 1121.87 General: Awake, Alert, Oriented x 3 HEENT: PERRL, EOMI, Sclera Non Icteric Neck: Supple, Good ROM, No Lymph Node Enlargement Lungs: Clear to auscultation Cardiovascular: Regular Rhythm, Normal S1, Normal S2, No Murmurs, No Rubs, No Gallops Vascular: No Carotid Bruits, Normal Femoral Pulses, Normal Radial Pulses, Normal Dorsalis Pedal Pulse, Normal Posterior Tibial Pulses Abdomen: Bowel Sounds Present, Soft, Non Tender, No HSM, No Organomegaly Extremities: No Cyanosis, No Clubbing, No edema Musculoskeletal: No Erythema Skin: No Rashes Lymphatic: No Lymph Node Enlargement Neurological: No Focal Motor or Sensory Deficit Psych/Mental Status: Appropriate 05/19/20 10:10: WBC 12.4 H, RBC 5.19, Hgb 16.5 H, Hct 48.7 H, MCV 93.8, MCH 31.8, MCHC 33.9, Plt Count 350, MPV 9.6, Immature Gran % (Auto) 0.300, Neut % (Auto) 65.6, Lymph % (Auto) 26.5, [place] % (Auto) 5.8, Eos % (Auto) 1.3, Baso % (Auto) 0.5, Absolute Neuts (auto) 8.2 H, Nucleated RBC % 0 05/19/20 10:10: Sodium 135 L, Potassium 2.9 L, Chloride 95 L, Carbon Dioxide 33.0 H, Anion Gap 7, BUN 16, Creatinine 0.92, Est GFR (MDRD) Af Amer 85, Est GFR (MDRD) Non-Af 70, BUN/Creatinine Ratio 17.4, Glucose 169 H, Calcium 9.7, Troponin I < 0.015 05/19/20 10:10: APTT 27.3 05/19/20 10:10: Total Bilirubin 0.40, Direct Bilirubin 0.13 05/19/20 10:10: Magnesium 2.6 05/19/20 10:10: PT 12.5, INR 1.0 05/19/20 14:37: Sodium 136, Potassium 2.8 L, Chloride 99, Carbon Dioxide 29.0, Anion Gap 8, BUN 16, Creatinine 0.83, Est GFR (MDRD) Af Amer 95, Est GFR (MDRD) Non-Af 78, BUN/Creatinine Ratio 19.2, Glucose 185 H, Calcium 9.1, Troponin I 2.040 H* 05/19/20 18:46: Troponin I 8.030 H* 05/20/20 06:20: WBC 14.6 H, RBC 4.15 L, Hgb 13.0, Hct 39.0, MCV 94.0, MCH 31.3, MCHC 33.3, Plt Count 252, MPV 9.3, Immature Gran % (Auto) 0.400, Neut % (Auto) 75.9 H, Lymph % (Auto) 16.2 L, [place] % (Auto) 6.5, Eos % (Auto) 0.8, Baso % (Auto) 0.2, Absolute Neuts (auto) 11.0 H, Nucleated RBC % 0 05/20/20 06:20: Sodium 137, Potassium 3.3 L, Chloride 102, Carbon Dioxide 28.0, Anion Gap 7, BUN 9, Creatinine 0.57, Est GFR (MDRD) Af Amer 146, Est GFR (MDRD) Non-Af 121, BUN/Creatinine Ratio 15.7, Glucose 169 H, Calcium 7.9 L, Total Bilirubin 0.40 Rhythm: EKG: ECHO: Stress Test: Cardiac Cath: PCI: CT Surgery: Holter monitor: EPS: PPM: CXR: Chest CT Scan: Medical Necessity - Tobacco Use Smoking Status: Heavy Smoker (>10/day) Tobacco Use: Cigars Assessment/Plan 1. Acute coronary syndrome * Patient presents with chest discomfort and subtle EKG changes with echocardiographic abnormalities noted and elevated troponin. * Cardiac catheterization demonstrated minimal left circumflex artery disease with findings of Takotsubo cardiomyopathy. * With treat with beta-blockers and FLAQUITA inhibitors. 2. Severe uncontrolled hypertension * Her blood pressure appears to be uncontrolled at this particular time. * Would recommend attempting to wean off intravenous nitroglycerin * Patient has been started on FLAQUITA inhibitors and beta-blockers and will watch throughout the day for her blood pressure. * 3. Risk factor modification * Would recommend aggressive risk factor modification. * Electrolyte abnormalities should also be corrected. * * * Patient also appears to have significant social issues and I would recommend a social service consult. * Thank you for allowing me to participate in the care of your patient. Please don't hesitate to call if any issues arise.
[2020-05-20] MEDS: Aspirin 81 MG TAB.CHEW PO (08:36)
--- NOTE | 2020-05-20 10:13 | PCM.PN.HOSP ---
Patient Problems: Active and Suspected Problems Chest pain, unspecified (Acute) Hypokalemia (Acute) Reason for Visit: Follow-up on acute NSTEMI/Takotsubo cardiomyopathy Subjective: Patient was seen and examined. She had uneventful night. Remains on nitro drip. Her blood pressure is reported to have come down after she received fentanyl IV. 2D echo shows EF of 35%, severe hypokinesis of the apex consistent with possible Takotsubo cardiomyopathy. Troponins trended up. She had a cardiac catheterization showed diffuse disease and calcification but no arterial stenoses. Objective: Physical exam: General: Alert, Oriented x3, Cooperative, obese HEENT: Atraumatic, PERRLA, EOMI, Normocephalic Oral: Moist Mucosa Neck: Supple Lungs: Clear to auscultation, Normal air movement Cardiovascular: Regular rate, Regular Rhythm, Normal S1, Normal S2, No murmurs Abdomen: Bowel Sounds Present, Soft, Non Tender, Non-Distended, No Hepato-splenomegaly Extremities: No edema Skin: No rashes Musculoskeletal: No Tenderness to Palpation of Joints or Extremities Lymphatic: No Cervical, Supraclavicular, or Inguinal Adenopathy Neurological: Cranial nerves II-XII grossly intact, Neuro grossly intact Psych/Mental Status: Normal Affect, Appropriate Vitals/I&O's: Vital Signs Temp Pulse Resp BP Pulse Ox 98.6 F 92 28 H 102/64 98 05/20/20 09:00 05/20/20 10:00 05/20/20 10:00 05/20/20 10:00 05/20/20 10:00 Oxygen Flow Rate (L/min) 2 Oxygen Delivery Method Room Air Weight: 93.3 kg Body Mass Index (BMI) 39.1 Finger Stick Blood Glucose 132 Intake and Output for Last 24 Hours 05/18/20 05/19/20 05/20/20 23:59 23:59 23:59 Intake Total 1568.14 / 1726.34 1676.10 / 1676.10 Balance 1568.14 / 1726.34 1676.10 / 1676.10 Laboratory Results 05/19/20 10:10: WBC 12.4 H, RBC 5.19, Hgb 16.5 H, Hct 48.7 H, MCV 93.8, MCH 31.8, MCHC 33.9, RDW Std Deviation 45.5 H, RDW Coeff of Kenn 13.2, Plt Count 350, MPV 9.6, Immature Gran % (Auto) 0.300, Neut % (Auto) 65.6, Lymph % (Auto) 26.5, [place] % (Auto) 5.8, Eos % (Auto) 1.3, Baso % (Auto) 0.5, Absolute Neuts (auto) 8.2 H, Absolute Lymphs (auto) 3.30, Nucleated RBC % 0 05/19/20 10:10: Sodium 135 L, Potassium 2.9 L, Chloride 95 L, Carbon Dioxide 33.0 H, Anion Gap 7, BUN 16, Creatinine 0.92, Estim Creat Clear Calc 55.47, Est GFR (MDRD) Af Amer 85, Est GFR (MDRD) Non-Af 70, BUN/Creatinine Ratio 17.4, Glucose 169 H, Calcium 9.7, Troponin I < 0.015 05/19/20 10:10: APTT 27.3 05/19/20 10:10: Total Bilirubin 0.40, Direct Bilirubin 0.13, AST 13 L, ALT 25, Alkaline Phosphatase 92, Total Protein 8.6 H, Albumin 4.2, Globulin 4.4 H 05/19/20 10:10: Magnesium 2.6 05/19/20 10:10: PT 12.5, INR 1.0 05/19/20 14:37: Sodium 136, Potassium 2.8 L, Chloride 99, Carbon Dioxide 29.0, Anion Gap 8, BUN 16, Creatinine 0.83, Estim Creat Clear Calc 61.48, Est GFR (MDRD) Af Amer 95, Est GFR (MDRD) Non-Af 78, BUN/Creatinine Ratio 19.2, Glucose 185 H, Calcium 9.1, Troponin I 2.040 H* 05/19/20 18:46: Troponin I 8.030 H* 05/19/20 19:12: POC Glucose 171 H 05/19/20 21:28: POC Glucose 194 H 05/20/20 06:20: WBC 14.6 H, RBC 4.15 L, Hgb 13.0, Hct 39.0, MCV 94.0, MCH 31.3, MCHC 33.3, RDW Std Deviation 45.5 H, RDW Coeff of Kenn 13.2, Plt Count 252, MPV 9.3, Immature Gran % (Auto) 0.400, Neut % (Auto) 75.9 H, Lymph % (Auto) 16.2 L, [place] % (Auto) 6.5, Eos % (Auto) 0.8, Baso % (Auto) 0.2, Absolute Neuts (auto) 11.0 H, Absolute Lymphs (auto) 2.36, Nucleated RBC % 0 05/20/20 06:20: Sodium 137, Potassium 3.3 L, Chloride 102, Carbon Dioxide 28.0, Anion Gap 7, BUN 9, Creatinine 0.57, Estim Creat Clear Calc 89.53, Est GFR (MDRD) Af Amer 146, Est GFR (MDRD) Non-Af 121, BUN/Creatinine Ratio 15.7, Glucose 169 H, Calcium 7.9 L, Total Bilirubin 0.40, AST 137 H, ALT 30, Alkaline Phosphatase 71, Total Protein 6.5, Albumin 3.1 L, Globulin 3.4, Albumin/Globulin Ratio 0.9 05/20/20 06:41: POC Glucose 171 H Current Medications Acetaminophen (Tylenol) 650 mg PO Q6H PRN PRN PRN Reason: Pain Score 1-10/Temp > 100.7 F Last Admin: 05/20/20 03:48 Dose: 650 mg Documented by: Albuterol Sulfate (Ventolin Aerosols) 2.5 mg INHALATION Q2H PRN PRN PRN Reason: SOB/Wheezing Aspirin (Aspirin, Baby) 81 mg PO DAILY@0800 [facility] Last Admin: 05/20/20 08:36 Dose: 81 mg Documented by: Atorvastatin Calcium (Lipitor) 40 mg PO QHS [facility] Last Admin: 05/19/20 21:22 Dose: 40 mg Documented by: Dextrose (D50w Syringe) 0 gm IV X1 PRN; Protocol PRN Reason: Hypoglycemia Enoxaparin Sodium (Lovenox) 40 mg SC DAILY@0600 [facility] Last Admin: 05/20/20 06:42 Dose: 40 mg Documented by: Escitalopram Oxalate (Lexapro) 10 mg PO DAILY [facility] Gabapentin (Neurontin) 400 mg PO TID [facility] Last Admin: 05/20/20 06:42 Dose: 400 mg Documented by: Glucagon () 1 mg IM .X1 PRN PRN Reason: Hypoglycemia Hydrochlorothiazide () 12.5 mg PO DAILY [facility] Sodium Chloride () 250 mls @ 15 mls/hr IV .[id number] PRN PRN Reason: Saline Flush Sodium Chloride () 250 mls @ 15 mls/hr IV .[id number] PRN PRN Reason: Additional IVPB Infusion Pantoprazole Sodium 40 mg/ (Sodium Chloride) 110 mls @ 330 mls/hr IV Q12 [facility] Last Admin: 05/19/20 21:18 Dose: Not Given Documented by: Nitroglycerin/Dextrose () 250 mls @ 3 mls/hr CONT INF .[id number] [facility]; Protocol Last Titration: 05/20/20 10:00 Dose: 5 mcg/min, 3 mls/hr Documented by: Sodium Chloride () 1,000 mls @ 15 mls/hr IV .Q48H [facility] Last Admin: 05/19/20 18:44 Dose: Not Given Documented by: Insulin Human Lispro (Humalog Kwikpen (Bkc)) 0 unit SC ACHS [facility]; Protocol Last Admin: 05/20/20 06:42 Dose: 1 u Documented by: Ipratropium [place] (Atrovent) 0.5 mg INHALATION Q6HWA.RT [facility] Last Admin: 05/20/20 07:29 Dose: 0.5 mg Documented by: Labetalol HCl (Trandate) 20 mg IV Q2H PRN PRN PRN Reason: BLOOD PRESSURE Last Admin: 05/19/20 20:02 Dose: 20 mg Documented by: Linagliptin (Tradjenta) 5 mg PO DAILY [facility] Lisinopril (Zestril) 40 mg PO DAILY [facility] Metoprolol Tartrate (Lopressor (Beta [place])) 50 mg PO BID [facility] Last Admin: 05/19/20 21:21 Dose: 50 mg Documented by: Morphine Sulfate () 2 mg IV Q3H PRN PRN PRN Reason: Pain Score 6-10/10 Last Admin: 05/19/20 19:38 Dose: 2 mg Documented by: Nicotine (Nicoderm Cq ([facility])) 21 mg TRANSDERM. DAILY [facility] Last Admin: 05/19/20 13:55 Dose: 21 mg Documented by: Nicotine Polacrilex ([place] Nicotine ([facility])) 4 mg PO Q2H PRN PRN PRN Reason: Nicotine Craving Last Admin: 05/19/20 13:56 Dose: 4 mg Documented by: Ondansetron HCl (Zofran) 4 mg IV Q8H PRN PRN PRN Reason: NAUSEA/VOMITING Last Admin: 05/19/20 19:45 Dose: 4 mg Documented by: Polyethylene Glycol (Miralax) 17 gm PO DAILY [facility]ANG Last Admin: 05/19/20 20:33 Dose: 17 gm Documented by: Sodium Chloride () 10 - 40 ml IV UD PRN PRN Reason: SALINE FLUSH Last Admin: 05/20/20 03:53 Dose: 20 ml Documented by: STROKE Vital Signs/Narrative: Vital Signs Temp Pulse Resp BP Pulse Ox 05/20/20 10:00 92 28 H 102/64 98 05/20/20 09:58 92 29 H 107/65 98 05/20/20 09:45 89 28 H 100/60 98 05/20/20 09:30 88 29 H 102/54 L 98 05/20/20 09:15 86 29 H 100/59 L 98 05/20/20 09:00 98.6 F 84 28 H 99/56 L 97 05/20/20 08:40 91 21 H 109/68 94 05/20/20 07:30 92 05/20/20 07:29 91 16 92 05/20/20 07:25 97.1 F L 86 27 H 147/71 H 92 05/20/20 07:00 85 Medical Necessity - Tobacco Use Smoking Status: Heavy Smoker (>10/day) Tobacco Use: Cigars Assessment/Plan All Active Problems Chest pain, unspecified (Acute) Hypokalemia (Acute) 1. Acute non-STEMI, status post cardiac catheterization that showed nonobstructive coronary artery disease On aspirin, statin, lisinopril, metoprolol 2. Hypertensive emergency, blood pressure controlled, remains on nitro drip Weaned off nitro drip, continue on the chlorothiazide, metoprolol, lisinopril, labetalol as needed 3. Takotsubo cardiomyopathy, EF 35%, not in acute CHF Continue on lisinopril, metoprolol 4. Hypokalemia, K is 3.3, replaced, recheck in am 5. Type II DM, on Tradjenta, blood sugars are stable Continue with blood glucose checks and insulin sliding scale 6. Obesity, BMI 39.1, lifestyle modification advised 7. Depression, continue on Lexapro 8. Nicotine dependence, advised to quit, on replacement 9. DVT prophylaxis with heparin subcu Inpatient E&M: 37971 Subs Hosp L2
[2020-05-20] MEDS: Lisinopril 40 MG Tablet PO (10:37)
[2020-05-20] MEDS: Metoprolol Tartrate 50 MG Tablet PO ×2 (10:37→21:17)
[2020-05-20] MEDS: Escitalopram Oxalate 10 MG Tablet PO (10:37)
[2020-05-20] MEDS: hydroCHLOROthiazide 12.5mg 12.5 MG PO (10:37)
[2020-05-20] MEDS: LINAGLIPTIN 5 MG TABLET PO (10:37)
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
--- NOTE | 2020-05-20 11:18 | CASEMGMT ---
VICENTA OVERTON assessment: Face to Face with patient for initial transition planning/care coordination assessment. VICENTA OVERTON introduced self and role at [facility], pt voices understanding and consents to assessment at this time. Pt is sitting up in chair and seems anxious at this time. Pt is A/Ox4 at this time and answers all questions appropriately at this time. Care providers, pharmacy, and demographics verified at this time. Presentation: Pt w/ CP starting last night Admitting dx: Hypokalemia/Accelerated HTN, NSTEMI PCP: Nick Specialists: Elissa neurologist, pt can't remember name Preferred Pharmacy: [facility] Insurance: [facility] Prescription Benefit: [facility] Living Will/HPOA: Pt states does not have LW/HPOA and decline AD info at this time. LNOK: Nereida Moyer, sister Living Arrangements: Pt states is currently living with her sister, Nereida, on the main level of 2 story home and states no concerns at home at this time. Pt states that her home address listed is actually her aunt's home and she would like to leave it as her mailing address but does not want to list aunt as a contact. Transportation: Pt states drives self and states no transportation concerns at this time. DME/HHC: Pt states no current DME or need for any at this time. Pt staets no hx of HHC or SNF in the past. Pt states no concerns with going home at time of discharge. Pt is currently unemployed. Pt states smokes 1-2packs of cigarettes daily and states does not drink ETOH. Pt voices no further questions/concerns/needs at this time. Advised pt to ask for CM if any further questions/concerns/needs arise, voices understanding. Pt Goal: Home Plan[place] VICENTA OVERTON
[2020-05-20] MEDS: LORazepam 2 MG/ML Syringe IV (11:25)
[2020-05-20 11:50] LABS: Bedside Glucose 186 mg/dL (70-110)
[2020-05-20] MEDS: Isosorbide Mononitrate 60 MG Tablet PO ×2 (12:48→21:17)
[2020-05-20] MEDS: oxyCODONE 5 MG Tablet 10 MG PO (12:48)
[2020-05-20 16:55] LABS: Bedside Glucose 205 mg/dL (70-110)
[2020-05-20] MEDS: Atorvastatin Calcium 40 MG Tablet PO (21:17)
[2020-05-20] MEDS: Morphine 2 MG/ML Syringe IV (21:18)
[2020-05-20 22:40] LABS: Bedside Glucose 171 mg/dL (70-110)
[2020-05-21] VITALS (9 sets, daily range): BP systolic 113–125; BP diastolic 70–75; PULSE 75–86; RESP 16–18; TEMP 36.1–37; O2SAT 95–98
[2020-05-21] MEDS: Acetaminophen 325 MG Tablet 650 MG PO ×2 (02:42→08:49)
[2020-05-21 06:43] LABS: Absolute Lymphocyte Count 2.05 X10^3/uL (0.83-4.51); Absolute Neutrophil Count 9.8 X10^3/uL (2.0-7.7); Basophil# 0.04 X10^3/uL; Basophil% 0.3 % (0-1); Eosinophil# 0.11 X10^3/uL; Eosinophils% 0.8 % (0-5); Hematocrit 40.8 % (37-47); Hemoglobin 13.7 g/dL (12.0-15.0); Lymphocyte # 2.05 X10^3/ul (4.0); Lymphocyte % 15.6 % (19-41); Mean Corp Hgb Conc 33.6 g/dL (32-36); Mean Corpuscular Hgb 32.2 pg (27.0-32.0); Mean Corpuscular Volume 95.8 fL (81-99); Mean Platelet Vol. 9.5 fl (6.2-12.0); Monocyte% 8.4 % (0-10); NRBC Flagged by Analyzer 0 % (0-5); Neutrophil # 9.81 X10^3/uL (2.7-7.7); Neutrophil % 74.4 % (47-70); Platelet Count 231 K/mm3 (150-450); RBC Distribution Width CV 13.2 % (11.6-14.6); RBC Distribution Width SD 46.4 fl (35.1-43.9); Red Blood Count 4.26 M/mm3 (4.2-5.4); White Blood Count 13.2 K/mm3 (4.4-11.0)
[2020-05-21] MEDS: Enoxaparin 40 MG/0.4 ML Syringe SC (06:48)
[2020-05-21] MEDS: Gabapentin 400 MG Capsule PO ×2 (06:48→13:09)
[2020-05-21] MEDS: Insulin Lispro 100 UNIT/ML INSULN.PEN SC ×2 (06:48→12:18)
[2020-05-21] MEDS: Ipratropium 0.5 MG/2.5 ML SOLUTION INHALATION (06:53)
[2020-05-21 06:56] LABS: Bedside Glucose 173 mg/dL (70-110)
[2020-05-21 07:07] LABS: ALB/GLOB Ratio 0.8 RATIO (0.9-2.4); AST(SGOT) 79 U/L (15-37); Alanine Aminotransfer ALT/SGPT 30 U/L (13-56); Albumin, Serum 3.2 g/dL (3.2-5.0); Alkaline Phosphatase 76 U/L (45-117); Anion Gap 5 (5-15); BUN 6 mg/dL (7-18); BUN/Creat Ratio 9.1 RATIO (10-20); Calcium,Total 8.8 mg/dL (8.5-10.1); Chloride 102 mmol/L (98-107); Creatinine, Serum 0.66 mg/dL (0.55-1.02); EST Glomerular Filtration Rate 102 mL/min (>60); Est Glom Filt Rate - Afr Amer 124 mL/min (>60); Estimated Creatinine Clearance 77.32 ml/min; Glucose 158 mg/dL (74-106); Potassium 4.1 mmol/L (3.5-5.1); Protein, Total 7.2 g/dL (6.4-8.2); Sodium Level 135 mmol/L (136-145)
--- NOTE | 2020-05-21 07:48 | PCM.DC ---
- Discharge Diagnoses Current Active Problems: Current Active and Chronic Problems (Last Updated 05/20/20 @ 19:07 by Ciara Wall) Chest pain, unspecified (Acute) Hypokalemia (Acute) Atherosclerotic heart disease of [place] coronary artery without angina pectoris (Acute) Non-ST elevated myocardial infarction (non-STEMI) (Acute 05/19/20) Takotsubo cardiomyopathy (Acute 05/20/20) Nicotine dependence (Chronic) Reason(s) for Visit for Discharge Instructions: Chest pain You will use the following diet at home:: Calorie/Carbohydrate Controlled (specify 1200, 1400, etc) - 1800, Cardiac Your food should be the consistency of: Regular Your liquids should be the consistency of: Regular/Thin Discharge Activity: Return to Normal Activity Additional Instructions: Continue to take all your medications as prescribed. Follow-up with your primary care doctor within 1 to 2 weeks. Follow-up with your fruit washer in 2 weeks. You are strongly advised to quit smoking. Follow a low-salt, low-fat diet. Allergies/Adverse Reactions: Allergies latex Allergy (Verified 04/08/16 13:02) Rash Medications to take at Discharge Atorvastatin Calcium [Lipitor] 40 mg PO QHS 02/13/16 Albuterol Sulfate [Albuterol Sulfate HFA] 2.5 mcg INHALATION 4X/DAY PRN PRN 05/19/20 Escitalopram Oxalate 10 mg PO DAILY 05/19/20 Gabapentin [Neurontin] 400 mg PO TID 05/19/20 Hydrochlorothiazide 12.5 mg PO DAILY 05/19/20 Linagliptin [Tradjenta] 5 mg PO DAILY 05/19/20 Tiotropium [place] [Spiriva] 2.5 mcg IH DAILY 05/19/20 Aspirin [Aspirin, Baby] 81 mg PO DAILY@0800 30 Days #30 tab.chew 05/21/20 Isosorbide Mononitrate [Imdur] 60 mg PO BID 30 Days #60 tab 05/21/20 Lisinopril [Zestril] 40 mg PO DAILY 30 Days #30 tab 05/21/20 Metoprolol Tartrate [Lopressor (beta ramy)] 50 mg PO BID 30 Days #30 tab 05/21/20 Nicotine [Nicoderm Cq] 21 mg TRANSDERM. DAILY 30 Days #30 patch 05/21/20 The following prescriptions were given: Aspirin [Aspirin, Baby] 81 mg PO DAILY@0800 30 Days #30 tab.chew Transmission Status: Pending to [facility] #30 Isosorbide Mononitrate [Imdur] 60 mg PO BID 30 Days #60 tab Transmission Status: Pending to [facility] #30 Metoprolol Tartrate [Lopressor (beta ramy)] 50 mg PO BID 30 Days #30 tab Transmission Status: Pending to [facility] #30 Nicotine [Nicoderm Cq] 21 mg TRANSDERM. DAILY 30 Days #30 patch Transmission Status: Pending to [facility] #30 Lisinopril [Zestril] 40 mg PO DAILY 30 Days #30 tab Transmission Status: Pending to [facility] #30 Primary Care Physician: Jonn Romero MD [Primary Care Provider] - Please follow up with your Primary Care Physician in: within 1-2 weeks Test Results: Test results from this visit will be discussed in further detail at your follow-up appointment, if applicable. Please Follow Up With: Odin Wood MD When: in 2 weeks Proposed Discharge Date: 05/21/20
--- NOTE | 2020-05-21 07:50 | DS.PCM_ITS ---
Discharge Date and Diagnosis - Problem List Patient Problems: Active and Suspected Problems (Last Updated 05/20/20 @ 19:07 by Ciara Wall) Atherosclerotic heart disease of [place] coronary artery without angina pectoris (Acute) Date of Admission: 05/19/20 Date of Discharge: 05/21/20 - Primary Discharge Diagnosis Acute Problems: Active Problems (Last Updated 05/20/20 @ 19:07 by Ciara Wall) Acute non-STEMI Hypokalemia Takotsubo cardiomyopathy, EF 35%, no signs of active CHF Hypertensive emergency - Secondary Discharge Diagnosis Chronic Problems: Chronic Problems (Last Updated 05/20/20 @ 19:07 by Ciara Wall) Nicotine dependence (Chronic) Type 2 diabetes mellitus (Chronic) COPD (chronic obstructive pulmonary disease) (Chronic) Hyperlipidemia (Chronic) Hospital Course and Treatment Imaging Results: Clinical Impression(s) from Imaging Studies Chest X-Ray 05/19/20 10:55 IMPRESSION: No acute abnormality is seen. Electronically Signed: Celso Acosta, at 11:07 EDT , Service support , Cardiology Operations: None Procedures: 2-D Echocardiogram, Cardiac catheterization Summary of Care Provided: 4 year old F with past medical history of hypertension, type II DM, fibromyalgia who comes in with complaints of chest pain. Patient woke up on the day of admission around 3 AM with complaints of substernal chest pain that feels pressure-like, radiates to both jaws and her back and down her left arm. It was accompanied by nausea and diaphoresis. This persisted despite she taking Tylenol and ibuprofen. Chest pain is worse when she lies back. She has some minimal relieved when she sits up. She denied any fever or chills or any recent illness. Chest pain is no worse when she moves her torso. She denied any diarrhea. She is constipated. She she however over the last few days has been vomiting, nothing comes out, but she has severe nausea and vomiting several times a day. Patient's initial vitals showed uncontrolled blood pressure. Her troponin x1 was negative. Her potassium was low at 2.9. Magnesium was normal. Potassium was replaced. She was admitted to telemetry floor. Her next troponin came back at 2.040. Her troponin peaked at 8.90. Cardiology was consulted. Patient's 2D echo showed EF of 35%, apical hypokinesis suggestive of Takotsubo cardiomyopathy. She underwent cardiac catheterization that showed nonobstruct he[place] coronary arteries. Patient continued to have severe chest pain with elevated blood pressure. She was managed on nitro drip. She also received Imdur to help control blood pressure. Blood pressures well controlled at discharge. She was no more having chest pain. Chest pain seem to correlate with uncontrolled blood pressure episodes. Patient was also found to have acute UTI on the day of discharge. She received IV ceftriaxone 2 g x 1 and was discharged on Omnicef for 3 days. She will follow-up with her primary care doctor within 1 to 2 days and as well as with cardiology in the outpatient. Patient Problems: Active and Suspected Problems (Last Updated 05/20/20 @ 19:07 by Ciara Wall) Atherosclerotic heart disease of [place] coronary artery without angina pectoris (Acute) Subjective: The day of discharge, patient was seen and examined. She complains of dysuria. UA was suggestive of UTI. Started on IV ceftriaxone and discharged on cefdinir for 3 days. Objective: Physical exam: General: Alert, Oriented x3, Cooperative, obese HEENT: Atraumatic, PERRLA, EOMI, Normocephalic Oral: Moist Mucosa Neck: Supple Lungs: Clear to auscultation, Normal air movement Cardiovascular: Regular rate, Regular Rhythm, Normal S1, Normal S2, No murmurs Abdomen: Bowel Sounds Present, Soft, Non Tender, Non-Distended, No Hepato- splenomegaly Extremities: No edema Skin: No rashes Musculoskeletal: No Tenderness to Palpation of Joints or Extremities Lymphatic: No Cervical, Supraclavicular, or Inguinal Adenopathy Neurological: Cranial nerves II-XII grossly intact, Neuro grossly intact Psych/Mental Status: Normal Affect, Appropriate - Physical Exam Vitals/I&O's: Vital Signs Temp Pulse Resp BP Pulse Ox 97.7 F L 82 16 118/73 97 05/21/20 06:42 05/21/20 06:42 05/21/20 06:42 05/21/20 06:42 05/21/20 06:42 Oxygen Flow Rate (L/min) 2 Oxygen Delivery Method Room Air Weight: 94.8 kg Body Mass Index (BMI) 39.1 Finger Stick Blood Glucose 132 Intake and Output for Last 24 Hours 05/19/20 05/20/20 05/21/20 23:59 23:59 23:59 Intake Total 1568.14 / 1726.34 2426.60 / 2426.60 120 / 120 Balance 1568.14 / 1726.34 2426.60 / 2426.60 120 / 120 Laboratory Results 05/20/20 11:43: POC Glucose 186 H 05/20/20 16:40: POC Glucose 205 H 05/20/20 21:15: POC Glucose 171 H 05/21/20 06:25: WBC 13.2 H, RBC 4.26, Hgb 13.7, Hct 40.8, MCV 95.8, MCH 32.2 H, MCHC 33.6, RDW Std Deviation 46.4 H, RDW Coeff of Kenn 13.2, Plt Count 231, MPV 9.5, Immature Gran % (Auto) 0.500, Neut % (Auto) 74.4 H, Lymph % (Auto) 15.6 L, Forrest % (Auto) 8.4, Eos % (Auto) 0.8, Baso % (Auto) 0.3, Absolute Neuts (auto) 9.8 H, Absolute Lymphs (auto) 2.05, Nucleated RBC % 0 05/21/20 06:25: Sodium 135 L, Potassium 4.1, Chloride 102, Carbon Dioxide 28.0, Anion Gap 5, BUN 6 L, Creatinine 0.66, Estim Creat Clear Calc 77.32, Est GFR (MDRD) Af Amer 124, Est GFR (MDRD) Non-Af 102, BUN/Creatinine Ratio 9.1 L, Glucose 158 H, Calcium 8.8, Total Bilirubin 0.50, AST 79 H, ALT 30, Alkaline Phosphatase 76, Total Protein 7.2, Albumin 3.2, Globulin 4.0, Albumin/Globulin Ratio 0.8 L 05/21/20 06:25: Triglycerides Pending, Cholesterol Pending, LDL Cholesterol Pending, VLDL Cholesterol Pending, HDL Cholesterol Pending 05/21/20 06:25: Hemoglobin A1c Pending 05/21/20 06:47: POC Glucose 173 H Current Medications Acetaminophen (Tylenol) 650 mg PO Q6H PRN PRN PRN Reason: Pain Score 1-10/Temp > 100.7 F Last Admin: 05/21/20 02:42 Dose: 650 mg Documented by: Albuterol Sulfate (Ventolin Aerosols) 2.5 mg INHALATION Q2H PRN PRN PRN Reason: SOB/Wheezing Aspirin (Aspirin, Baby) 81 mg PO DAILY@0800 [facility] Last Admin: 05/20/20 08:36 Dose: 81 mg Documented by: Atorvastatin Calcium (Lipitor) 40 mg PO QHS [facility] Last Admin: 05/20/20 21:17 Dose: 40 mg Documented by: Dextrose (D50w Syringe) 0 gm IV X1 PRN; Protocol PRN Reason: Hypoglycemia Enoxaparin Sodium (Lovenox) 40 mg SC DAILY@0600 [facility] Last Admin: 05/21/20 06:48 Dose: 40 mg Documented by: Escitalopram Oxalate (Lexapro) 10 mg PO DAILY [facility] Last Admin: 05/20/20 10:37 Dose: 10 mg Documented by: Gabapentin (Neurontin) 400 mg PO TID [facility] Last Admin: 05/21/20 06:48 Dose: 400 mg Documented by: Glucagon () 1 mg IM .X1 PRN PRN Reason: Hypoglycemia Hydrochlorothiazide () 12.5 mg PO DAILY [facility] Last Admin: 05/20/20 10:37 Dose: 12.5 mg Documented by: Sodium Chloride () 250 mls @ 15 mls/hr IV .[id number] PRN PRN Reason: Saline Flush Sodium Chloride () 250 mls @ 15 mls/hr IV .[id number] PRN PRN Reason: Additional IVPB Infusion Sodium Chloride () 1,000 mls @ 15 mls/hr IV .Q48H [facility] Last Admin: 05/19/20 18:44 Dose: Not Given Documented by: Insulin Human Lispro (Humalog Kwikpen (Bkc)) 0 unit SC ACHS [facility]; Protocol Last Admin: 05/21/20 06:48 Dose: 1 u Documented by: Ipratropium [place] (Atrovent) 0.5 mg INHALATION Q6HWA.RT [facility] Last Admin: 05/21/20 06:53 Dose: 0.5 mg Documented by: Isosorbide Mononitrate (Imdur) 60 mg PO BID [facility] Last Admin: 05/20/20 21:17 Dose: 60 mg Documented by: Labetalol HCl (Trandate) 20 mg IV Q2H PRN PRN PRN Reason: BLOOD PRESSURE Last Admin: 05/19/20 20:02 Dose: 20 mg Documented by: Linagliptin (Tradjenta) 5 mg PO DAILY [facility] Last Admin: 05/20/20 10:37 Dose: 5 mg Documented by: Lisinopril (Zestril) 40 mg PO DAILY [facility] Last Admin: 05/20/20 10:37 Dose: 40 mg Documented by: Metoprolol Tartrate (Lopressor (Beta Jesenia)) 50 mg PO BID [facility] Last Admin: 05/20/20 21:17 Dose: 50 mg Documented by: Morphine Sulfate () 2 mg IV Q3H PRN PRN PRN Reason: Pain Score 6-10/10 Last Admin: 05/20/20 21:18 Dose: 2 mg Documented by: Nicotine (Nicoderm Cq ([facility])) 21 mg TRANSDERM. DAILY [facility] Last Admin: 05/20/20 10:38 Dose: 21 mg Documented by: Nicotine Polacrilex ([place] Nicotine ([facility])) 4 mg PO Q2H PRN PRN PRN Reason: Nicotine Craving Last Admin: 05/19/20 13:56 Dose: 4 mg Documented by: Ondansetron HCl (Zofran) 4 mg IV Q8H PRN PRN PRN Reason: NAUSEA/VOMITING Last Admin: 05/19/20 19:45 Dose: 4 mg Documented by: Polyethylene Glycol (Miralax) 17 gm PO DAILY [facility] Last Admin: 05/20/20 10:38 Dose: Not Given Documented by: Sodium Chloride () 10 - 40 ml IV UD PRN PRN Reason: SALINE FLUSH Last Admin: 05/20/20 21:18 Dose: 20 ml Documented by: Discharge Diet: Low fat/ Low Cholesterol, 2000 mg Sodium Diet, Carb Control Diet Discharge Activity: Return to Normal Activity Home Medications: Medications to take at Discharge Atorvastatin Calcium [Lipitor] 40 mg PO QHS 02/13/16 Albuterol Sulfate [Albuterol Sulfate HFA] 2.5 mcg INHALATION 4X/DAY PRN PRN 05/19/20 Escitalopram Oxalate 10 mg PO DAILY 05/19/20 Gabapentin [Neurontin] 400 mg PO TID 05/19/20 Hydrochlorothiazide 12.5 mg PO DAILY 05/19/20 Linagliptin [Tradjenta] 5 mg PO DAILY 05/19/20 Tiotropium [place] [Spiriva] 2.5 mcg IH DAILY 05/19/20 Aspirin [Aspirin, Baby] 81 mg PO DAILY@0800 30 Days #30 tab.chew 05/21/20 Cefdinir [Omnicef [equiv]] 300 mg PO Q12H 3 Days #6 cap 05/21/20 Isosorbide Mononitrate [Imdur] 60 mg PO BID 30 Days #60 tab 05/21/20 Lisinopril [Zestril] 40 mg PO DAILY 30 Days #30 tab 05/21/20 Metoprolol Tartrate [Lopressor (beta jesenia)] 50 mg PO BID 30 Days #30 tab 05/21/20 Nicotine [Nicoderm Cq] 21 mg TRANSDERM. DAILY 30 Days #30 patch 05/21/20 Following Prescriptions Were Given to Patient: Aspirin [Aspirin, Baby] 81 mg PO DAILY@0800 30 Days #30 tab.chew Transmission Status: Received by [facility] #30 Isosorbide Mononitrate [Imdur] 60 mg PO BID 30 Days #60 tab Transmission Status: Received by [facility] #30 Metoprolol Tartrate [Lopressor (beta jesenia)] 50 mg PO BID 30 Days #30 tab Transmission Status: Received by [facility] #30 Nicotine [Nicoderm Cq] 21 mg TRANSDERM. DAILY 30 Days #30 patch Transmission Status: Received by [facility] #30 Cefdinir [Omnicef [equiv]] 300 mg PO Q12H 3 Days #6 cap Transmission Status: Received by [facility]30 Lisinopril [Zestril] 40 mg PO DAILY 30 Days #30 tab Transmission Status: Received by [facility] #30 Primary Care Physician: Jonn Romero MD [Primary Care Provider] - Please follow up with your Primary Care Physician in: within 1-2 weeks Please Follow Up With: Odin Wood MD When: in 2 weeks Disposition: Home Minutes spent on discharge:: 45 Patient Condition:: Stable Medical Necessity - Tobacco Use Smoking Status: Heavy Smoker (>10/day) Tobacco Use: Cigars Meaningful Use Info Meaningful Use Diagnoses (Choose all that apply): AMI - AMI/Post PCI/Angioplasty Aspirin given w/in 24hrs of arrival?: Yes ASA at discharge?: Yes Antiplatelet Therapy at Discharge:: No Statins at discharge?: Yes Sin/ARB at discharge?: Yes Beta Jesenia at discharge?: Yes Done w/ Acute MS measure.: Yes Documented LVEF (%): 35 Inpatient E&M: 39065 Disch Hosp
[2020-05-21 08:08] LABS: Cholesterol 224 mg/dL (200); High Density Lipoprotein 35 mg/dL; Triglycerides 225 mg/dL; Very Low Density Lipoprotein 45 mg/dL (5-40)
[2020-05-21] MEDS: LINAGLIPTIN 5 MG TABLET PO (08:49)
[2020-05-21] MEDS: Polyethylene Glycol 3350 17 GM PACKET PO (08:49)
[2020-05-21] MEDS: Escitalopram Oxalate 10 MG Tablet PO (08:49)
[2020-05-21] MEDS: Metoprolol Tartrate 50 MG Tablet PO (08:49)
[2020-05-21] MEDS: Isosorbide Mononitrate 60 MG Tablet PO (08:49)
[2020-05-21] MEDS: hydroCHLOROthiazide 12.5mg 12.5 MG PO (08:49)
[2020-05-21] MEDS: Lisinopril 40 MG Tablet PO (08:49)
[2020-05-21] MEDS: Aspirin 81 MG TAB.CHEW PO (08:49)
[2020-05-21] MEDS: 0.9% Saline Lock 10 ML Syringe IV (09:44)
--- NOTE | 2020-05-21 10:57 | PHA.DC.MC ---
Pharmacy Service has performed discharge medication reconciliation and counseling for this patient. 1. ASPIRIN 81MG PO DAILYCM 2. CEFDINIR 300MG PO Q12 X 3 DAYS 3. ISOSORBIDE MONONITRATE 60MG PO BID 4. LISINOPRIL 40MG DAILY 5. METOPROLOL TARTRATE 50MG PO BID 6. NICOTINE PATCH 21MG TD DAILY The patient's discharge medication list was reviewed for discrepancies and discrepancies were resolved. Home Medications Atorvastatin Calcium [Lipitor] 40 mg PO QHS 02/13/16 Albuterol Sulfate [Albuterol Sulfate HFA] 2.5 mcg INHALATION 4X/DAY PRN PRN 05/19/20 Escitalopram Oxalate 10 mg PO DAILY 05/19/20 Gabapentin [Neurontin] 400 mg PO TID 05/19/20 Hydrochlorothiazide 12.5 mg PO DAILY 05/19/20 Linagliptin [Tradjenta] 5 mg PO DAILY 05/19/20 Tiotropium [place] [Spiriva] 2.5 mcg IH DAILY 05/19/20 Aspirin [Aspirin, Baby] 81 mg PO DAILY@0800 30 Days #30 tab.chew 05/21/20 Cefdinir [Omnicef [equiv]] 300 mg PO Q12H 3 Days #6 cap 05/21/20 Isosorbide Mononitrate [Imdur] 60 mg PO BID 30 Days #60 tab 05/21/20 Lisinopril [Zestril] 40 mg PO DAILY 30 Days #30 tab 05/21/20 Metoprolol Tartrate [Lopressor (beta ramy)] 50 mg PO BID 30 Days #30 tab 05/21/20 Nicotine [Nicoderm Cq] 21 mg TRANSDERM. DAILY 30 Days #30 patch 05/21/20 The patient was counseled on the following discharge medications and changes in medications for homegoing were reviewed. The Reason for Use, instructions for use, and potential side effects were reviewed for all new medications. The patient's questions regarding all of their medications were answered. The patient was able to verbally demonstrate an understanding of their discharge medications. Patient was counseled by accredited pharmacy technician, Anel.
[2020-05-21 11:56] LABS: Mucous, Urine 0 SEEN /hpf (<or=2+); Squamous Epithelial Cells - UA 0 SEEN /hpf (5-10)
[2020-05-21 12:18] LABS: Color, Urine Straw (Yellow); Glucose, Dipstick Normal (Normal); Ketone-Dipstick Negative (Negative); Leukocyte Esterase-Dipstick 500 /ul (Negative); Nitrite-Dipstick Negative (Negative); Occult Blood-Urine 50 /ul (Negative); Protein-Dipstick 30 mg/dl (Negative); Urine Bilirubin Dipstick Negative (Negative); Urine Clarity Sl. Cloudy (Clear); Urine Urobilinogen Normal (Normal)
[2020-05-21 12:34] LABS: Red Blood Cells-Urine 0-5 SEEN /hpf (0-5); White Blood Cells >100 SEEN /hpf (0-5)
[2020-05-21 12:35] LABS: Bacteria RARE /hpf (None Seen)
[2020-05-21 13:31] LABS: Bedside Glucose 221 mg/dL (70-110)
== END 2020-05-21 13:20 | disposition home or self-care (01) | DRG 190 ==
LOC: ED 11:16 → PCU 11:23
PROVIDERS: Admitting Provider Internal Medicine; Emergency Provider Emergency Medicine; PCP Family Medicine; Visit Provider Internal Medicine
DX: I21.4 Non-ST elevation (NSTEMI) myocardial infarction (principal); I51.81 Takotsubo syndrome; E87.6 Hypokalemia; I16.1 Hypertensive emergency; E11.9 Type 2 diabetes mellitus without complications; I25.10 Atherosclerotic heart disease of native coronary artery without angina pectoris; J44.9 Chronic obstructive pulmonary disease, unspecified; E78.5 Hyperlipidemia, unspecified; E66.9 Obesity, unspecified; Z79.51 Long term (current) use of inhaled steroids; Z79.899 Other long term (current) drug therapy; F17.290 Nicotine dependence, other tobacco product, uncomplicated; Z68.39 Body mass index [BMI] 39.0-39.9, adult; F32.9 Major depressive disorder, single episode, unspecified; Z79.84 Long term (current) use of oral hypoglycemic drugs; N39.0 Urinary tract infection, site not specified
CPT/HCPCS: 36415; 71045; 80048; 80053; 80061; 80076; 81001; 82962; 83036; 83735; 84484; 85025; 85610; 85730; 87086; 93005; 93306; 93458; 94640; 99152; 99153; 99285; 99406; J7030; J7040; J7050; Q9957; Q9967; A4216; C1769; C1894; C8929; J0696; J2405

== ENCOUNTER → 2020-09-01 12:54 | Outpatient (CLI) | payer MEDICAID, SELFPAY ==
[2020-06-04 08:59] VITALS: BMI 40.8
--- NOTE | 2020-09-01 12:55 | ECHOCS_ITS ---
Reason For Study: DYSPNEA/SOB Procedure This was a 2D Doppler, Color Flow transthoracic echocardiogram. Exam performed in department. Left Ventricle Normal LV size. Left ventricular systolic function is normal. The estimated ejection fraction is 60 %. Normal diastology for age. No regional wall motion abnormalities noted. Right Ventricle Normal RV size. Normal systolic function. Atria Normal left atrium. Normal right atrium. Mitral Valve Normal mitral valve. Tricuspid Valve Normal tricuspid valve. Aortic Valve Trisinus/trileaflet aortic valve. Pulmonic Valve The pulmonic valve is not well visualized. Great Vessels Normal aortic root. The pulmonary artery is normal size. Normal inferior vena cava. Pericardium/Pleural No pericardial effusion. Medication 22 gauge I.V. with prn adaptor inserted into right arm. Diluted definity 2.0ml given slow IV push to enhance endocardial definition. MMode/2D Measurements & Calculations LVIDd: 5.2 cm IVSd: 1.0 cm Ao root diam: 2.6 cm LVIDs: 3.9 cm LVPWd: 1.0 cm RVDd: 3.1 cm FS: 24.0 % LAV(MOD-bp): 62.5 ml LA A4 area: 20.2 cm2 LA dimension(2D): 3.5 cm LAV(MOD-bp) Indexed: 32.2 ml/m2 LAV(MOD-sp2): 58.9 ml LAV(MOD-sp4): 58.9 ml RA A4 area: 14.6 cm2 Time Measurements MV dec time: 0.18 sec Doppler Measurements & Calculations MV E max chuy: 70.6 cm/sec Lat Peak E' Chuy: 9.4 cm/sec Med Peak E' Chuy: 7.6 cm/sec MV A max chuy: 60.7 cm/sec E/E' lat: 7.5 E/E' med: 9.3 MV E/A: 1.2 Ao V2 max: 138.0 cm/sec LV V1 max: 114.7 cm/sec PA V2 max: 100.5 cm/sec Ao max P.6 mmHg LV V1 max P.3 mmHg Interpretation Summary Normal LV size. Left ventricular systolic function is normal. The estimated ejection fraction is 60 %. Contrast injection was performed. Structurally normal valves. Ordering Physician: Odin Wood Referring Physician: Mike Romero Performed By: Kaylan Clark, KAREN, RVT
== END ==
PROVIDERS: PCP Family Medicine; Referring Provider Internal Medicine Cardiovascular Disease; Visit Provider Internal Medicine Cardiovascular Disease
DX: R06.00 Dyspnea, unspecified (principal); R06.02 Shortness of breath; I51.81 Takotsubo syndrome
CPT/HCPCS: 93306; Q9957; A4216; C8929

== ENCOUNTER → 2021-01-15 | Outpatient (CLI) | payer MEDICAID, SELFPAY ==
[2020-10-10 09:17] VITALS: BMI 44.9
== END | disposition home or self-care (01) ==
PROVIDERS: PCP Family Medicine; Referring Provider Family Medicine; Visit Provider Family Medicine
DX: Z20.822 Contact with and (suspected) exposure to COVID-19 (principal)
CPT/HCPCS: 87635; U0002

== ENCOUNTER → 2021-04-02 16:21 | Outpatient (CLI) | payer MEDICAID, SELFPAY ==
[2020-10-10 09:17] VITALS: BMI 44.9
[2021-04-02 18:28] LABS: ALB/GLOB Ratio 0.9 RATIO (0.9-2.4); AST(SGOT) 15 U/L (15-37); Alanine Aminotransfer ALT/SGPT 38 U/L (13-56); Albumin, Serum 3.5 g/dL (3.2-5.0); Alkaline Phosphatase 94 U/L (45-117); Anion Gap 7 (5-15); BUN 13 mg/dL (7-18); BUN/Creat Ratio 19.2 RATIO (10-20); Calcium,Total 8.7 mg/dL (8.5-10.1); Chloride 103 mmol/L (98-107); Creatinine, Serum 0.68 mg/dL (0.55-1.02); EST Glomerular Filtration Rate 99 mL/min (>60); Est Glom Filt Rate - Afr Amer 120 mL/min (>60); Glucose 87 mg/dL (74-106); Protein, Total 7.5 g/dL (6.4-8.2); Sodium Level 138 mmol/L (136-145); Thyroid Stim Hormone (TSH) 3.71 uIU/mL (0.358-3.74)
[2021-04-03 07:34] LABS: AST(SGOT) 15 U/L (15-37); Alanine Aminotransfer ALT/SGPT 37 U/L (13-56); Albumin, Serum 3.6 g/dL (3.2-5.0); Alkaline Phosphatase 98 U/L (45-117); Bilirubin, Direct 0.08 mg/dL (0.00-0.30); Cholesterol 273 mg/dL (200); Globulin 3.7 g/dL (2.2-4.2); Protein, Total 7.3 g/dL (6.4-8.2)
[2021-04-03 07:35] LABS: High Density Lipoprotein 41 mg/dL; Triglycerides 309 mg/dL; Very Low Density Lipoprotein 62 mg/dL (5-40)
== END ==
PROVIDERS: PCP Family Medicine; Referring Provider Physician Assistant Medical; Visit Provider Physician Assistant Medical
DX: E78.5 Hyperlipidemia, unspecified (principal); E11.9 Type 2 diabetes mellitus without complications
CPT/HCPCS: 36415; 80053; 80061; 80076; 84443

== ENCOUNTER 2021-06-12 17:15 | Emergency (ER) | payer MEDICAID, SELFPAY ==
[2021-06-12] VITALS (7 sets, daily range): BP systolic 95–119; BP diastolic 66–79; PULSE 60–84; RESP 16–20; TEMP 36.4–36.8; O2SAT 94–96; BMI 50.8
--- NOTE | 2021-06-12 18:04 | RAD_ITS ---
STUDY: X-RAY CHEST REASON FOR EXAM: Female, 46 years old. Tested positive for COVID 3 days ago. Shortness of breath. TECHNIQUE: Single AP portable view of the chest. COMPARISON: 05/19/2020. FINDINGS: The lungs are well-expanded. There is vague densities at both lung bases which may represent an early infiltrate. There is no demonstrated pleural abnormality. Normal size heart. Normal mediastinum and guille. Normal visualized pulmonary arteries. Normal visualized aortic arch and descending thoracic aorta. There are diffuse degenerative changes of the visualized thoracic spine. Normal visualized ribs, clavicles, and shoulders. There is no demonstrated abnormality of the visualized soft tissue structures of the upper abdomen. RAD/Chest 1 View (Portable) IMPRESSION: Question early bibasilar infiltrates without other interval change. Electronically Signed: Corey Portillo DO at 18:25 EDT Tel [phone], Service support ,
--- NOTE | 2021-06-12 18:06 | EDS_ITS ---
HPI HPI - URI History of Present Illness Chief Complaint: Shortness of Breath Informant: patient Onset/Context/Timing Onset: Days Context: Gradual Onset Timing: Continuous Current Severity: Mild Maximum Severity: Mild Associated Symptoms Associated Symptoms: Positive for Nasal Congestion, Myalgias, Shortness of Breath and Nonproductive cough; Negative for Nausea, Vomiting and Diarrhea Narrative Narrative: 46-year-old female history of COPD, CAD, [place], diabetic and obesity. Unvaccinated. Positive for Covid Tuesday was admitted to [facility] for 3 days. She states she got the antiviral treatment remdesivir. She was not given monoclonal antibodies. She was discharged home. Her pulse ox has been reportedly falling into the 70s while she is sleeping. Her primary care physician wanted her to be evaluated in the emergency department. She denies any hemoptysis. Prior similar symptoms: Yes Recent Illness/Hospitalization: Yes ROS ROS ED Review of Systems ROS Unobtainable: Denies due to encephalopathy Constitutional Constitutional ED: Reports fever(s) Eyes Eyes: Denies change in vision Cardiovascular Cardiovascular: Denies chest pain Respiratory/Chest Respiratory/Chest: Reports cough and dyspnea Gastrointestinal Gastrointestinal: Denies abdominal pain, diarrhea, nausea or vomiting Genitourinary Genitourinary ED: Denies dysuria Musculoskeletal Musculoskeletal: Reports myalgias Integumentary Denies rash Neurologic Neurologic: Denies headache(s) Psychiatric Psychiatric: Denies depression Endocrine Endocrinology: Denies polyuria Hematologic/Lymphatic Hematologic/Lymphatic: Denies easy bruising Allergic/Immunologic Allergic/Immunologic ED: Denies urticaria PFSH PFS Medical History (Updated 06/12/21 @ 20:[address] Benja Sanchez MD) Atherosclerotic heart disease of [place] coronary artery without angina pectoris Chest pain, unspecified COPD (chronic obstructive pulmonary disease) Hyperlipidemia Hypokalemia Nicotine dependence Non-ST elevated myocardial infarction (non-STEMI) (05/19/20) Obesity Takotsubo cardiomyopathy (05/20/20) Type 2 diabetes mellitus Home Medications albuterol sulfate 2.5 mcg INHALATION 4X/DAY PRN PRN 05/19/20 [History Last Taken Unknown] gabapentin 400 mg PO TID 05/19/20 [History Last Taken Unknown] hydrochlorothiazide 12.5 mg PO DAILY 05/19/20 [History Last Taken Unknown] linagliptin 5 mg PO DAILY 05/19/20 [History Last Taken Unknown] aspirin 81 mg chewable tablet 81 mg PO DAILY #30 tab 06/18/20 [Rx Last Taken Unknown] lisinopril 40 mg tablet 40 mg PO DAILY #30 tab 06/18/20 [Rx Last Taken Unknown] metoprolol tartrate 50 mg tablet 25 mg PO BID #60 tab 06/30/20 [Rx Last Taken Unknown] escitalopram oxalate 20 mg tablet 20 mg PO DAILY tab 10/10/20 [History Last Taken Unknown] glimepiride 4 mg tablet 4 mg PO DAILY tab 10/10/20 [History Last Taken Unknown] ondansetron HCl 4 mg tablet 4 mg PO TID PRN tab 10/10/20 [History Last Taken Unknown] tiotropium bromide 2.5 mcg/actuation mist for inhalation 2 puff INHALATION DAILY g 10/10/20 [History Last Taken Unknown] atorvastatin 80 mg tablet 80 mg PO QHS #90 tab 04/13/21 [Rx Last Taken Unknown] dexamethasone [Decadron] 6 mg PO DAILY 7 Days #7 tab 06/12/21 [Rx Last Taken Unknown] zinc sulfate 220 mg PO DAILY 06/12/21 [History Last Taken Unknown] Allergy/AdvReac Type Severity Reaction Status Date / Time latex Allergy Rash Verified 06/12/21 17:18 metformin AdvReac Nausea/Vom/ Verified 06/12/21 17:30 Diarrhea Family History Mother COPD (chronic obstructive pulmonary disease) Hypertension Myocardial infarction, Onset Age: 50 Heart disease Father Hypertension Heart disease CVA (cerebral vascular accident) Surgical History History of carpal tunnel release History of left heart catheterization (05/19/20) Social History Smoking Status: Current every day smoker tobacco type: cigarettes how long ago did patient quit smokin weeks ago alcohol intake: never substance use type: marijuana caffeine: Yes Type: carbonated beverages Number of servings: 2 and coffee Number of servings: 2 EXAM Physical Exam Narrative Exam Narrative: 46-year-old female vital signs stable her pulse ox on room air sitting there is 96%. She does not look septic or toxic she is in no distress. HEENT exam unremarkable moist remembers. Neck nontender no JVD. No lymphadenopathy. Lungs clear to auscultation bilaterally. Heart regular rhythm rate about 80 no murmur. Abdomen soft nontender normal bowel sounds no peritoneal signs. Moving all 4 extremities. Calves are nontender without edema or cords. Neurologically she is awake and alert. Const Vital Signs: 06/12/21 17:16 06/12/21 17:34 06/12/21 18:24 Temperature 97.6 F L 97.6 F L 98.3 F Temperature Source Temporal Oral Oral Pulse Rate 78 63 60 Respiratory Rate 18 18 20 H Respiratory Effort Short of Breath Respiratory Depth Normal Respiratory Pattern Normal Blood Pressure 119/74 105/79 95/66 Blood Pressure Mean 89 87 75 Pulse Ox 96 96 95 Oxygen Delivery Method Room Air Room Air Positive well nourished, well developed and obese; Negative for cachectic or contractures General Appearance ED: well developed and NAD; Negative for cachectic, contractures, cyanotic, diaphoretic or pallor Nutritional Appearance: obese; Negative for cachectic HEENT Reports moist mucous membranes normocephalic; Negative for atraumatic Face and Sinus: Negative for sinus tenderness External Ear: external ears normal Eyes PERRL and EOMs intact bilaterally Neck no lymphadenopathy, supple, no meningeal signs and no JVD General: Negative for anterior neck swelling or lymphadenopathy Resp normal respiratory effort and clear to auscultation bilaterally Effort and Inspection: Negative for retractions Auscultation: Negative for rales, rhonchi or wheezes Cardio S1 normal heart sound, S2 normal heart sound and no murmurs Rate: regular rate Rhythm: regular rhythm GI non-tender, non-distended and no masses Inspection: Negative for abdominal distention Auscultation: normoactive bowel sounds Palpation: soft; Negative for tender or guarding Back/Spine no CVA tenderness Extremity normal to inspection and full ROM General Extremety ED: Negative for cyanosis or tenderness General Extremity: Negative for cyanosis Neuro oriented x3 Sensorium / Orientation: alert, oriented to person, oriented to place and oriented to time; Negative for orientation impaired, lethargic or stuporous Motor Exam: strength 5/5 throughout Psych mental status grossly normal Skin General Skin Exam: Negative for jaundice or pallor Lesions: no lesions Rashes: no rashes MDM MDM MDM Narrative Medical decision making narrative: 46-year-old female multiple comorbidities Covid positive sent for further evaluation. Screening labs and x-ray are being obtained. She will be given IV Decadron. Repeat exam patient is doing well on 8:40 PM. She was ambulated in the hallway and her pulse ox stayed 94%. She does not need oxygen. She will be started on Decadron. She will be referred for monoclonal antibody therapy PE because she is currently day 6 and is still within the 10-day window. I have her primary care physician group on page to let them know the treatment plan. She does not need admitted. Lab Data Attestation: I reviewed the patient's lab results. Lab results narrative: Bulk.CBC shows a slight elevated white count 11.7. Hemoglobin 12.9. No bands. Electrolytes gap of 8 with normal creatinine. Labs: Laboratory Results - last 24 hr 06/12/21 06/12/21 18:20 18:20 WBC 11.7 H RBC 4.06 L Hgb 12.9 Hct 40.3 MCV 99.3 H MCH 31.8 MCHC 32.0 RDW Std Deviation 54.2 H RDW Coeff of Kenn 14.9 H Plt Count 229 MPV 9.6 Immature Gran % (Auto) 0.400 Neut % (Auto) 74.8 H Lymph % (Auto) 15.5 L [place] % (Auto) 8.0 Eos % (Auto) 1.1 Baso % (Auto) 0.2 Absolute Neuts (auto) 8.8 H Absolute Lymphs (auto) 1.82 Nucleated RBC % 0 Sodium 140 Potassium 3.4 L Chloride 103 Carbon Dioxide 29.0 Anion Gap 8 BUN 27 H Creatinine 0.94 Estim Creat Clear Calc 53.14 Est GFR (MDRD) Af Amer 82 Est GFR (MDRD) Non-Af 68 BUN/Creatinine Ratio 28.7 H Glucose 165 H Calcium 8.9 Chest x-ray, single view portable interpreted by myself and the radiologist is consistent with Covid infiltrates bilaterally. Radiography Diagnostic Testing: Clinical Impression(s) from Imaging Studies Chest X-Ray 06/12/21 18:04 IMPRESSION: Question early bibasilar infiltrates without other interval change. Electronically Signed: Corey Portillo DO at 18:25 EDT Tel [phone], Service support , Discharge Plan Triage Chief Complaint: Shortness of Breath ED Provider: Benja Sanchez Dx/Rx/DC Orders Clinical Impression: COVID-19, History of diabetes mellitus Instructions: Human Coronaviruses Prescriptions: New dexamethasone [Decadron] 6 mg tablet 6 mg PO DAILY 7 Days Qty: 7 RF: 0 No Action glimepiride 4 mg tablet 4 mg PO DAILY RF: 0 escitalopram oxalate 20 mg tablet 20 mg PO DAILY RF: 0 ondansetron HCl 4 mg tablet 4 mg PO TID PRN (Reason: Nausea) RF: 0 tiotropium bromide 2.5 mcg/actuation mist 2 puff INHALATION DAILY RF: 0 gabapentin 400 MG capsule 400 mg PO TID RF: 0 albuterol sulfate 90 mcg/actuation HFA aerosol inhaler 2.5 mcg inhalation 4X/DAY PRN PRN (Reason: Sob &/Or Wheezing) RF: 0 hydrochlorothiazide 12.5 mg tablet 12.5 mg PO DAILY RF: 0 linagliptin 5 MG tablet 5 mg PO DAILY RF: 0 zinc sulfate 50 mg zinc (220 mg) tablet 220 mg PO DAILY RF: 0 aspirin 81 mg tablet,chewable 81 mg PO DAILY Qty: 30 RF: 11 lisinopril 40 mg tablet 40 mg PO DAILY Qty: 30 RF: 11 metoprolol tartrate 50 mg tablet 25 mg PO BID Qty: 60 RF: 11 atorvastatin 80 mg tablet 80 mg PO QHS Qty: 90 RF: 3 Other Ambulatory Orders: COVID Outpatient Monoclonal Antibody Referral (Routine) Timeframe: 1 Day Facility: [facility] - Location: [facility] Ordered By: Dr. eBnja Sanchez Primary Care Provider: Jonn Romero Referrals: Jonn Romero MD [Primary Care Provider] - As Needed Activity Restrictions/Additional Instructions: Hospitalist service out to you on Tuesday and follow-up to determine if and when you can receive monoclonal antibody therapy. Start the Decadron once daily tomorrow. We gave you a dose of it tonight. Return if feeling a lot worse. At this time you do not need admitted or other therapy. Disposition Disposition: Home, Self Care
[2021-06-12] MEDS: dexAMETHasone 10 MG/ML Vial IV (18:22)
[2021-06-12 18:30] LABS: Absolute Lymphocyte Count 1.82 X10^3/uL (0.83-4.51); Absolute Neutrophil Count 8.8 X10^3/uL (2.0-7.7); Basophil# 0.02 X10^3/uL; Basophil% 0.2 % (0-1); Eosinophil# 0.13 X10^3/uL; Eosinophils% 1.1 % (0-5); Hematocrit 40.3 % (37-47); Hemoglobin 12.9 g/dL (12.0-15.0); Lymphocyte # 1.82 X10^3/ul (0.83-4.51); Lymphocyte % 15.5 % (19-41); Mean Corpuscular Hgb 31.8 pg (27.0-32.0); Mean Corpuscular Volume 99.3 fL (81-99); Mean Platelet Vol. 9.6 fl (6.2-12.0); Monocyte# 0.94 X10^3/uL; NRBC Flagged by Analyzer 0 % (0-5); Neutrophil # 8.75 X10^3/uL (2.7-7.7); Neutrophil % 74.8 % (47-70); Platelet Count 229 K/mm3 (150-450); RBC Distribution Width CV 14.9 % (11.6-14.6); RBC Distribution Width SD 54.2 fl (35.1-43.9); Red Blood Count 4.06 M/mm3 (4.2-5.4); White Blood Count 11.7 K/mm3 (4.4-11.0)
[2021-06-12 18:55] LABS: Anion Gap 8 (5-15); BUN 27 mg/dL (7-18); BUN/Creat Ratio 28.7 RATIO (10-20); Calcium,Total 8.9 mg/dL (8.5-10.1); Chloride 103 mmol/L (98-107); Creatinine, Serum 0.94 mg/dL (0.55-1.02); EST Glomerular Filtration Rate 68 mL/min (>60); Est Glom Filt Rate - Afr Amer 82 mL/min (>60); Estimated Creatinine Clearance 53.14 ml/min; Glucose 165 mg/dL (74-106); Potassium 3.4 mmol/L (3.5-5.1); Sodium Level 140 mmol/L (136-145)
== END 2021-06-12 21:03 | disposition home or self-care (01) ==
PROVIDERS: Emergency Provider Emergency Medicine; PCP Family Medicine
DX: U07.1 COVID-19 (principal); J44.9 Chronic obstructive pulmonary disease, unspecified; I25.10 Atherosclerotic heart disease of native coronary artery without angina pectoris; E11.9 Type 2 diabetes mellitus without complications; E66.9 Obesity, unspecified; E78.5 Hyperlipidemia, unspecified; F17.210 Nicotine dependence, cigarettes, uncomplicated; Z79.51 Long term (current) use of inhaled steroids; Z79.84 Long term (current) use of oral hypoglycemic drugs; Z79.899 Other long term (current) drug therapy
CPT/HCPCS: 71045; 80048; 85025; 96374; 99283; A4216

== ENCOUNTER 2021-06-19 14:25 | Emergency (ER) | payer MEDICAID, SELFPAY ==
[2021-06-19 14:26] VITALS: BP 153/79; PULSE 80; RESP 18; TEMP 36.2; O2SAT 95; BMI 48.8
--- NOTE | 2021-06-19 15:57 | EKG12_ITS ---
Test Reason : CP Blood Pressure : / mmHG Vent. Rate : 079 BPM Atrial Rate : 079 BPM P-R Int : 114 ms QRS Dur : 088 ms QT Int : 390 ms P-R-T Axes : 051 098 086 degrees QTc Int : 447 ms Normal sinus rhythm Septal infarct , age undetermined Abnormal ECG Confirmed by GOLDIE LYNCH, HUMBERTO ([id number]), publishing editor RAMONITA GRAMAJO ([id number]) on 06/23/2021 8:39:47 AM Referred By: BB/BLANCA/RU Confirmed By:HUMBERTO AMEZCUA MD
== END 2021-06-19 15:45 | disposition left against medical advice (07) ==
LOC: ED 16:13
PROVIDERS: PCP Family Medicine
DX: R07.9 Chest pain, unspecified (principal)
CPT/HCPCS: 93005

== ENCOUNTER 2021-06-22 17:21 | Emergency (ER) | payer MEDICAID, SELFPAY ==
[2021-06-22] VITALS (7 sets, daily range): BP systolic 132; BP diastolic 102; PULSE 71–82; RESP 24–27; TEMP 36.4; O2SAT 92–96; BMI 49.6
--- NOTE | 2021-06-22 17:54 | EKG12_ITS ---
Test Reason : SOB Blood Pressure : / mmHG Vent. Rate : 066 BPM Atrial Rate : 066 BPM P-R Int : 126 ms QRS Dur : 082 ms QT Int : 406 ms P-R-T Axes : 060 098 055 degrees QTc Int : 425 ms Normal sinus rhythm Septal infarct , age undetermined Abnormal ECG Confirmed by GOLDIE LYNCH, HUMBERTO ([id number]), manager editorial RAMONITA GRAMAJO ([id number]) on 06/24/2021 9:29:27 AM Referred By: TACO Confirmed By:HUMBERTO AMEZCUA MD
[2021-06-22] MEDS: MethylPREDNISolone 125 MG/2 ML Vial IV (18:06)
[2021-06-22] MEDS: Furosemide 40 MG/4 ML Vial IV (18:06)
[2021-06-22 18:33] LABS: Absolute Lymphocyte Count 1.29 X10^3/uL (0.83-4.51); Absolute Neutrophil Count 9.3 X10^3/uL (2.0-7.7); Basophil# 0.02 X10^3/uL; Basophil% 0.2 % (0-1); Eosinophil# 0.19 X10^3/uL; Eosinophils% 1.6 % (0-5); Hematocrit 38.2 % (37-47); Hemoglobin 12.5 g/dL (12.0-15.0); Lymphocyte # 1.29 X10^3/ul (0.83-4.51); Lymphocyte % 11.2 % (19-41); Mean Corp Hgb Conc 32.7 g/dL (32-36); Mean Corpuscular Hgb 31.5 pg (27.0-32.0); Mean Corpuscular Volume 96.2 fL (81-99); Mean Platelet Vol. 9.8 fl (6.2-12.0); Monocyte# 0.63 X10^3/uL; Monocyte% 5.4 % (0-10); NRBC Flagged by Analyzer 0 % (0-5); Neutrophil # 9.25 X10^3/uL (2.7-7.7); Platelet Count 205 K/mm3 (150-450); RBC Distribution Width CV 15.2 % (11.6-14.6); Red Blood Count 3.97 M/mm3 (4.2-5.4); White Blood Count 11.6 K/mm3 (4.4-11.0)
--- NOTE | 2021-06-22 18:39 | RAD_ITS ---
STUDY: X-RAY CHEST REASON FOR EXAM: Female, 46 years old. Chest pain and cough TECHNIQUE: PA and lateral views of the chest. COMPARISON: 06/12/2021 FINDINGS: EKG leads overlie the chest Lungs are expanded with slight increase in interstitial and airspace opacifications compared to the previous study. No demonstrated effusions. This pattern of opacification is suspicious for Covid pneumonia. Normal size heart. Normal mediastinum and guille. Normal visualized pulmonary arteries. Normal visualized aortic arch and descending thoracic aorta. Normal visualized thoracic spine. Normal visualized ribs, clavicles, and shoulders. There is no demonstrated abnormality of the visualized soft tissue structures of the upper abdomen. RAD/Chest PA and Lateral IMPRESSION: Progression of interstitial and airspace opacification since the previous study. Follow-up recommended to assure resolution Electronically Signed: Bill Garrett MD at 19:34 EDT , Service support ,
[2021-06-22 18:48] LABS: BNP,B-Type NATRIURETIC PEPTIDE 17.9 pg/mL (0-100)
[2021-06-22 18:51] LABS: Anion Gap 6 (5-15); BUN 23 mg/dL (7-18); BUN/Creat Ratio 27.5 RATIO (10-20); Calcium,Total 8.9 mg/dL (8.5-10.1); Chloride 97 mmol/L (98-107); Creatinine, Serum 0.84 mg/dL (0.55-1.02); EST Glomerular Filtration Rate 78 mL/min (>60); Est Glom Filt Rate - Afr Amer 94 mL/min (>60); Estimated Creatinine Clearance 59.47 ml/min; Glucose 269 mg/dL (74-106); Magnesium 1.9 mg/dL (1.6-2.6); Sodium Level 133 mmol/L (136-145); Troponin-I HS 8 pg/mL (3.0-54.0)
--- NOTE | 2021-06-22 20:16 | EDS_ITS ---
HPI History of Present Illness Chief Complaint: Shortness of Breath Narrative Narrative: Patient is a 46-year-old female who states she was diagnosed with Covid on June 09. She states she was admitted to the hospital for a few days and then discharged home. She reports that she just finished 10 days of steroids but is still had bouts of shortness of breath and therefore was advised to come back to the hospital for evaluation. [facility] Medical History (Updated 06/22/21 @ 20:[address] Wade Rand, DO) Atherosclerotic heart disease of [place] coronary artery without angina pectoris Chest pain, unspecified COPD (chronic obstructive pulmonary disease) Hyperlipidemia Hypokalemia Nicotine dependence Non-ST elevated myocardial infarction (non-STEMI) (05/19/20) Obesity Takotsubo cardiomyopathy (05/20/20) Type 2 diabetes mellitus Home Medications albuterol sulfate 2.5 mcg INHALATION 4X/DAY PRN PRN 05/19/20 [History Last Taken Unknown] gabapentin 400 mg PO TID 05/19/20 [History Last Taken Unknown] hydrochlorothiazide 12.5 mg PO DAILY 05/19/20 [History Last Taken Unknown] linagliptin 5 mg PO DAILY 05/19/20 [History Last Taken Unknown] aspirin 81 mg chewable tablet 81 mg PO DAILY #30 tab 06/18/20 [Rx Last Taken Unknown] lisinopril 40 mg tablet 40 mg PO DAILY #30 tab 06/18/20 [Rx Last Taken Unknown] metoprolol tartrate 50 mg tablet 25 mg PO BID #60 tab 06/30/20 [Rx Last Taken Unknown] escitalopram oxalate 20 mg tablet 20 mg PO DAILY tab 10/10/20 [History Last Taken Unknown] glimepiride 4 mg tablet 4 mg PO DAILY tab 10/10/20 [History Last Taken Unknown] ondansetron HCl 4 mg tablet 4 mg PO TID PRN tab 10/10/20 [History Last Taken Unknown] tiotropium bromide 2.5 mcg/actuation mist for inhalation 2 puff INHALATION DAILY g 10/10/20 [History Last Taken Unknown] atorvastatin 80 mg tablet 80 mg PO QHS #90 tab 04/13/21 [Rx Last Taken Unknown] dexamethasone [Decadron] 6 mg PO DAILY 7 Days #7 tab 06/12/21 [Rx Last Taken Unknown] zinc sulfate 220 mg PO DAILY 06/12/21 [History Last Taken Unknown] albuterol sulfate [Ventolin HFA] 1 - 2 puff INHALATION Q4H PRN PRN #1 device 06/22/21 [Rx Last Taken Unknown] promethazine-codeine 5 ml PO Q6H PRN 7 Days #140 ml 06/22/21 [Rx Last Taken Unknown] Allergy/AdvReac Type Severity Reaction Status Date / Time latex Allergy Rash Verified 06/22/21 17:24 metformin AdvReac Nausea/Vom/ Verified 06/22/21 17:24 Diarrhea Family History Mother COPD (chronic obstructive pulmonary disease) Hypertension Myocardial infarction, Onset Age: 50 Heart disease Father Hypertension Heart disease CVA (cerebral vascular accident) Surgical History History of carpal tunnel release History of left heart catheterization (05/19/20) Social History Smoking Status: Current every day smoker tobacco type: cigarettes how long ago did patient quit smokin weeks ago alcohol intake: never substance use type: marijuana caffeine: Yes Type: carbonated beverages Number of servings: 2 and coffee Num emeka of servings: 2 ROS ROS ED Constitutional Constitutional ED: Denies chills or fever(s) ENT ENT ED: Denies sore throat Cardiovascular Cardiovascular: Denies chest pain Respiratory/Chest Respiratory/Chest: Reports cough and dyspnea Gastrointestinal Gastrointestinal: Denies abdominal pain, diarrhea, nausea or vomiting Genitourinary Genitourinary ED: Denies dysuria Musculoskeletal Musculoskeletal: Reports myalgias Integumentary Denies rash Neurologic Neurologic: Denies headache(s) Hematologic/Lymphatic Hematologic/Lymphatic: Denies easy bleeding or easy bruising EXAM Physical Exam Const Vital Signs: 06/22/21 17:21 06/22/21 17:26 06/22/21 17:34 Temperature 97.5 F L 97.5 F L Temperature Source Temporal Temporal Pulse Rate 71 71 Respiratory Rate 24 H 24 H Respiratory Effort Short of Breath Labored Accessory Muscle Use Respiratory Pattern Blood Pressure 132/102 H 132/102 H Blood Pressure Mean 112 112 Pulse Ox 93 93 Oxygen Delivery Method Room Air Room Air Room Air 06/22/21 19:29 06/22/21 19:38 Temperature Temperature Source Pulse Rate 78 82 Respiratory Rate 24 H 27 H Respiratory Effort Respiratory Pattern Tachypnea Blood Pressure Blood Pressure Mean Pulse Ox Oxygen Delivery Method Positive well nourished, well developed and obese General Appearance ED: well developed Nutritional Appearance: obese HEENT Reports moist mucous membranes HEENT Narrative: No tongue or lip swelling no oral lesions no airway edema or compromise Eyes PERRL and EOMs intact bilaterally Neck supple and no JVD Neck Narrative: Positive anterior cervical lymphadenopathy noted Chest Wall palpation of chest normal Resp Resp Narrative: Patient has tachypnea and breath sounds are diminished throughout with diffuse expiratory wheeze Cardio regular rate and regular rhythm GI non-tender, non-distended and no masses Auscultation: normoactive bowel sounds Palpation: soft Extremity Extremity Narrative: Patient has trace to +1 pitting edema to the bilateral lower extremities that is equal and symmetric with negative Homans' sign bilaterally Neuro oriented x3 and CN's II-XII intact bilaterally Sensorium / Orientation: alert Motor Exam: strength 5/5 throughout Psych mental status grossly normal Skin no rashes or lesions noted MDM MDM MDM Narrative Medical decision making narrative: Patient presented to the ER with mild tachypnea but otherwise was satting 92 to 94% on room air. Her lungs sounded more inflamed and there was no obvious physical exam findings to suggest heart failure as a cause. She also reported she had a CTA when she was diagnosed with Covid and was treated with prophylactic blood thinners in the hospital but not discharged on them indicating she did not have a PE. At this time I do not feel there is need for repeat CTA but an x-ray will be obtained. The x-ray did show worsening infiltrates consistent with Covid pneumonia. However her laboratory studies revealed no acute findings. The patient was reevaluated and is resting comfortably and her pulse ox remains 92 to 94% on room air. She was ambulated and her pulse ox only decreased 92% but not below 89 to suggest need for oxygen. Therefore at this time as she is not requiring supplemental oxygen and her lab work reveals no signs of fluid overload or cardiac damage I do not have criteria to put the patient in the hospital. This was discussed with the patient and she is agreeable with this plan. I will not place her back on steroids as she is completed a full 10-day course. Instead I will provide albuterol inhaler as well as cough syrup to help control symptoms but she knows to return if she feels worsening shortness of breath as the x-ray did show increased Covid pneumonia at this time. Lab Data Attestation: I reviewed the patient's lab results. Labs: Laboratory Results - last 24 hr 06/22/21 06/22/21 06/22/21 18:05 18:05 18:05 WBC 11.6 H RBC 3.97 L Hgb 12.5 Hct 38.2 MCV 96.2 MCH 31.5 MCHC 32.7 RDW Std Deviation 53.0 H RDW Coeff of Kenn 15.2 H Plt Count 205 MPV 9.8 Immature Gran % (Auto) 1.600 H Neut % (Auto) 80.0 H Lymph % (Auto) 11.2 L [place] % (Auto) 5.4 Eos % (Auto) 1.6 Baso % (Auto) 0.2 Absolute Neuts (auto) 9.3 H Absolute Lymphs (auto) 1.29 Nucleated RBC % 0 Sodium 133 L Potassium 4.0 Chloride 97 L Carbon Dioxide 30.0 Anion Gap 6 BUN 23 H Creatinine 0.84 Estim Creat Clear Calc 59.47 Est GFR (MDRD) Af Amer 94 Est GFR (MDRD) Non-Af 78 BUN/Creatinine Ratio 27.5 H Glucose 269 H Calcium 8.9 Magnesium 1.9 Troponin I High Sens 8 B-Natriuretic Peptide 17.9 Radiography Diagnostic Testing: Clinical Impression(s) from Imaging Studies Chest X-Ray 06/22/21 18:39 IMPRESSION: Progression of interstitial and airspace opacification since the previous study. Follow-up recommended to assure resolution Electronically Signed: Bill Garrett MD at 19:34 EDT , Service support , Discharge Plan Triage Chief Complaint: Shortness of Breath ED Provider: Wade Rand Dx/Rx/DC Orders Clinical Impression: Pneumonia due to 2019 novel coronavirus Instructions: Coronavirus Disease 2019 (COVID-19): Caring for Yourself or Others Prescriptions: New albuterol sulfate [Ventolin HFA] 90 mcg/actuation HFA aerosol inhaler 1 - 2 puff inhalation Q4H PRN PRN (Reason: Wheezing) Qty: 1 RF: 0 promethazine-codeine 6.25-10 mg/5 mL syrup 5 ml PO Q6H PRN (Reason: cough) 7 Days Qty: 140 RF: 0 No Action glimepiride 4 mg tablet 4 mg PO DAILY RF: 0 escitalopram oxalate 20 mg tablet 20 mg PO DAILY RF: 0 ondansetron HCl 4 mg tablet 4 mg PO TID PRN (Reason: Nausea) RF: 0 tiotropium bromide 2.5 mcg/actuation mist 2 puff INHALATION DAILY RF: 0 gabapentin 400 MG capsule 400 mg PO TID RF: 0 albuterol sulfate 90 mcg/actuation HFA aerosol inhaler 2.5 mcg inhalation 4X/DAY PRN PRN (Reason: Sob &/Or Wheezing) RF: 0 hydrochlorothiazide 12.5 mg tablet 12.5 mg PO DAILY RF: 0 linagliptin 5 MG tablet 5 mg PO DAILY RF: 0 zinc sulfate 50 mg zinc (220 mg) tablet 220 mg PO DAILY RF: 0 dexamethasone [Decadron] 6 mg tablet 6 mg PO DAILY 7 Days Qty: 7 RF: 0 aspirin 81 mg tablet,chewable 81 mg PO DAILY Qty: 30 RF: 11 lisinopril 40 mg tablet 40 mg PO DAILY Qty: 30 RF: 11 metoprolol tartrate 50 mg tablet 25 mg PO BID Qty: 60 RF: 11 atorvastatin 80 mg tablet 80 mg PO QHS Qty: 90 RF: 3 Primary Care Provider: Jonn Romero Referrals: Jonn Romero MD [Primary Care Provider] - Disposition Disposition: Home, Self Care
== END 2021-06-22 21:00 | disposition home or self-care (01) ==
PROVIDERS: Emergency Provider Emergency Medicine; PCP Family Medicine
DX: U07.1 COVID-19 (principal); J12.82 Pneumonia due to coronavirus disease 2019; I25.10 Atherosclerotic heart disease of native coronary artery without angina pectoris; J44.0 Chronic obstructive pulmonary disease with (acute) lower respiratory infection; E78.5 Hyperlipidemia, unspecified; E66.9 Obesity, unspecified; E11.9 Type 2 diabetes mellitus without complications; F17.210 Nicotine dependence, cigarettes, uncomplicated; Z79.51 Long term (current) use of inhaled steroids; Z79.84 Long term (current) use of oral hypoglycemic drugs; Z79.899 Other long term (current) drug therapy
CPT/HCPCS: 71046; 80048; 83735; 83880; 84484; 85025; 93005; 94640; 96374; 96375; 99282; A4216; J1940

== ENCOUNTER → 2021-09-01 | Outpatient (CLI) | payer MEDICAID, SELFPAY | END | disposition home or self-care (01) | LOC: LABSPEC 14:47 | PROVIDERS: PCP Family Medicine; Visit Provider Family Medicine | DX: Z20.822 Contact with and (suspected) exposure to COVID-19 (principal) | CPT/HCPCS: 87635; U0005; U0003 ==